=== PATIENT | male | born 1960 | race Caucasian/White ===

== ENCOUNTER 2018-08-10 10:46 | Day surgery (SDC) | payer OTHER, SELFPAY ==
--- NOTE | 2018-08-09 17:36 | HP.PCM_ITS ---
History and Physical Date of Admission: 08/10/18 HISTORY AND PHYSICAL ? Trever Arizmendi 1960 ? REFERRING PHYSICIAN: ??Jero Isaacs MD ? CHIEF COMPLAINT: ??Consult (GI bleed) ? HPI: The patient is a 58 year old male referred for endoscopy. ?I was performing endoscopy and his this past Thursday. ?In discussion with the patient st rictly his 's endoscopy, he noted a significant amount of rectal bleeding in the toilet bowl. ?Over the weekend. ?He was wishing to have a rapid evaluation for endoscopy himself. ? ??Trever notes the following GI complaints: ??Trever denies abdominal pain.. ?Trever denies?diarrhea. ??Trever denies?constipation. ?Trever denies?a change in bowel habits. ?Trever denies?melena. ?Trever notes?bright red blood per rectum. ???Trever suspects?hemorrhoids. ? ? The patient ?notes the following upper complaints: ??Trever denies abdominal pain.. ?Trever notes?heartburn. ??Trever denies?dysphagia. ?Trever denies?a history of ulcers/ peptic ulcer disease. ???He does take a proton pump inhibitor due to significant reflux. ? Trever has not?undergone prior endoscopy. ? ? He also notes an umbilical and inguinal hernia. ?His left hernia is somewhat symptomatic. ?He likely has a smaller right inguinal hernia. ?Additionally, area did wide like to have endoscopy performed in the near future, he is not currently off time or a notification saved up to have his hernias repaired. ?He would plan to do that later in the year or in early 2018 ? PAST MEDICAL HISTORY PAST MEDICAL HISTORY Diagnosis Date ? Arthritis ? ? Heartburn ? ? ? PAST SURGICAL HISTORY PAST SURGICAL HISTORY Procedure Laterality Date ? NONE ? CURRENT MEDICATIONS ? Current Outpatient Prescriptions: multivit-minerals/ferrous fum (MULTI VITAMIN ORAL) Take by mouth once daily. omeprazole (PRILOSEC) 10 mg capsule Take 1 capsule by mouth daily before breakfast. 1/2 hr before meal. Jopx-Yqjg-RFE#5-L-Gydi-Mitul-Bor (OSTEO BI-FLEX) 750-625-30 mg Tab Take ?by mouth. ? No current facility-administered medications for this visit. ? ALLERGIES: Patient has no known allergies. ? PERSONAL HISTORY: SOCIAL HISTORY Social History ??Marital status: ?Spouse name: Gosia. ?Years of education: ?Number of children: ? Social History Main Topics ??Smoking status: Never Smoker ?Smokeless tobacco: Never Used ?Alcohol use: Yes ?Comment: occasionally ??Drug use: No ?Sexual activity: Yes ?Partners with: Female ? Social History Narrative ?? ~2009. ?Remarried. ? FAMILY HISTORY: FAMILY HISTORY FAMILY HISTORY Problem Relation Age of Onset ? Diabetes Mother ? ? Heart Mother ? ? other (lupus) Mother ? ? other (colon polyp) Mother ? ? Heart Father ? ? Heart Brother 53 ?Prior stents but quintuple bypass at age 53. ? REVIEW OF SYMPTOMS: ??The review of systems data was entered by the nurse and reviewed by me ? Nursing Notes: Sindi Olmos LPN ?08/05/2018 ?4:37 PM ?Signed REVIEW OF SYSTEMS: ?General:???The patient denies fatigue, denies weight loss, denies weight gain, denies feeling hot, and denies feelings of cold. ?Eyes: ?The patient denies glaucoma, denies eye injury/surgery, wears glasses or contacts. ?Ear/Nose/Throat: ?The patient denies allergies, denies hayfever, denies ear infections, and denies bloody noses. ?Cardiovascular: ?The patient denies chest pain, denies heart disease, denies high blood pressure,denies cardiac stent, denies prior heart attack, denies irregular heart beat, denies high cholesterol, ?denies poor circulation, denies heart failure, other cardiac issues, denies claudication, denies cold feet, denies peripheral arterial stent. ?Respiratory: ?The patient denies tuberculosis, denies pneumonia, denies frequent cough, denies pulmonary embolism, denies shortness of breath, and denies coughing up blood. ?Gastrointestinal: ?The patient denies difficulty swallowing, NOTES acid reflux, denies ulcers, denies vomiting, denies jaundice/hepatitis, denies gallbladder problems, denies black or tarry stools, denies hemorrhoids, NOTES bleeding from rectum, denies diverticulitis, denies constipation, denies diarrhea, denies loss of stool control, and denies hernias. ?Kidney/Bladder: ?The patient denies kidney stones, denies urine infections, and denies bloody urine. ?Skin: ?The patient denies a history of skin cancer, denies bleeding/changing moles, and denies a history of skin rash. ?Neurologic: ?The patient denies a history of epilepsy/convulsions, denies headaches, denies head/spinal injuries, and denies stroke/TIA. ?Psychiatric: ?The patient denies psychiatric medications, denies depression, and denies voices, denies substance abuse. ?Endocrine: ?The patient denies thyroid disorders, denies diabetes, and denies hormonal problems. ?Hematologic: ?The patient denies a history of bruising, denies bleeding, and denies anemia, denies blood clots. ?Infections: ?The patient denies a history of measles and mumps, denies rheumatic fever, and denies sexually transmitted diseases. ?Musculoskeletal: ?The patient denies back pain/injury, denies back problems, denies sciatica, NOTES knee/foot trouble, denies arthritis, or denies gout. ? ? When was patient's last Mammogram screening? N/A ? ?Last Colonoscopy: ?none ? Sindi Olmos LPN ? PHYSICAL EXAMINATION: ? General: ?The patient is 58 year old male, well nourished, well hydrated in no acute distress. ?The patient is oriented to time, place, and person. ? VITALS: Blood pressure 128/74, pulse 72, weight 121.1 kg (267 lb).?Body mass index is 32.5 kg/m?.? ? HEENT: ?Normal cephalic, ataumatic, pupils are equally round, sclera are anicteric, mucous membranes are moist, oropharynx is clear. ?Neck has no masses, asymmetry or lymphadenopathy. ?Thyroid is unremarkable. ? Respiratory: ?Clear to auscultation and percussion. ?Normal respiratory excursion and pattern. ? Cardiac: ?Examination is regular rate and rhythm. ? Abdominal exam: ?Soft, nontender, ?with no palpable masses. ?No hepatosplenomegaly. ?An umbilical hernia, a larger left inguinal hernia, likely right inguinal hernia ? Rectal exam: exam deferred ? Extremities: ?no clubbing, cyanosis or edema. ?No adenopathy. ? Other: ? LABORATORY VALUES: As Noted ? RADIOLOGIC STUDIES: ?As Noted ? Assessment ? IMPRESSION: Reflux on PPIs, rectal bleeding, likely hemorrhoids, umbilical hernia, left inguinal hernia, likely right inguinal hernia ? PLAN: ?I plan to perform upper and lower?endoscopy - if possible, we will consider hemorrhoidal banding at the same time.. ??We discussed the risks and benefits of the planned endoscopy. ?I have informed the patient that complications can occur including failure to complete the endoscopy and perforation. ?The patient had the opportunity to ask questions concerning the planned endoscopy. ?My staff has also explained the procedure to the patient in understandable terms and has given the patient printed material concerning the procedure. ?The patient freely consents to surgery. ? I plan to use golytely bowel preparation for endoscopy ? I plan for monitored anesthetic care. ? Diagnoses: (K62.5) Rectal bleeding ?(primary encounter diagnosis) (K21.9) Gastroesophageal reflux disease, esophagitis presence not specified (K42.0) Umbilical hernia with obstruction, without gangrene (K40.20) Non-recurrent bilateral inguinal hernia without obstruction or gangrene ? My findings have been communicated to Dr. Lavonne Isaacs MD?via shared medical record. ?This note will be forwarded to Dr. Jero Isaacs MD. ?? Return to Clinic: The patient is instructed to follow-up with me after the testing has been completed. ? Marty Hess MD
--- NOTE | 2018-08-10 | IMM_PTH ---
PATIENT: MAGGIE ALVARADO LOC: EN U#:[id number] AGE/SX: 58/M ROOM: RE08/10/[address]: Dr. Marty Hess MD : 1960 BED: DIS: 08/10/2018 SPEC #: [id number] RECD: 08/12/18 10:20 STATUS: ANTON REQ #: [id number] [place]: 08/10/18 00:[address]: Marty Hess DEPT: IMMUNOHISTOCHEMISTRY RECD BY: Jana uH ENTERED: 08/12/18 10:22 SP TYPE: IMMUNO OTHR DR: Dr. Fuad Isaacs MD Tissues: A - Stomach, NOS C - Rectum, NOS Procedures: H Pylori (initial) MSH2 (add) MLH-1 (add) MSH6 (add) Anti-PMS2 (add) FIGUEROA-2 (add) P53 (add) KI-67 (initial) PHYSICIAN & INSTITUTION [place] [id number] SPECIMEN INFORMATION: Tissue Source: A - Antral biopsy, C - Rectal biopsy Clinical Info: Rectal bleeding, GERD, esophagitis Specimen Number: [id number] A & C CPT code: 78315 x2, 18573 x6 METHODOLOGY: Deparaffinized sections of prefer/formalin-fixed tissue or PAP/DQ stained slides are incubated with monoclonal/polyclonal antibodies/oligonucleotide probes. Localization is made via biotin free immunoperoxidase method. Appropriate controls are performed and reacted as expected. Results on target cell population are indicated in the following table: RESULTS: ANTIBODY / CLONE RESULT Block A H Pylori (polyclonal) negative Block B Ki-67 (30-9) positive, high P53 (DO-7) positive MSH2 (25D12) positive MSH6 (44) positive MLH-1 (M1) positive PMS2 (RTV6281) positive FIGUEROA-2 (SP21) positive These tests were developed and their performance characteristics determined by [facility]. They may not have been cleared or approved by the U.S. Food and Drug Administration. The FDA has determined that such clearance or approval is not necessary. INTERPRETATION: A. Antral biopsy: Negative for Helicobacter pylori organisms. B. Rectal biopsy: Invasive adenocarcinoma. Result of Microsatellite Instability Study: Negative (no loss of mismatch protein; no microsatellite instability detected). SJ:terrence 08/12/18
[2018-08-10 11:15] VITALS: BP 138/85; PULSE 74; RESP 16; TEMP 36.8; O2SAT 100; BMI 30.7
--- NOTE | 2018-08-10 12:00 | EGD_PTH ---
PATIENT: MAGGIE ALVARADO LOC: EN U#:[id number] AGE/SX: 58/M ROOM: RE08/10/[address]: Dr. Marty Hess MD : 1960 BED: DIS: 08/10/2018 SPEC #: [id number] RECD: 08/10/18 15:13 STATUS: ANTON MAGDALENE #: [id number] [place]: 08/10/18 12:[address]: Marty Hess DEPT: SURGICAL PATHOLOGY RECD BY: Luz Batista ENTERED: 08/11/18 10:13 SP TYPE: EGD BIOPSY EDYTA DR: Dr. Fuad Isaacs MD Tissues: A - Gastric mucous membrane B - Gastric mucous membrane C - Rectum, NOS Procedures: Special Stain Group II Surgery Specimen Level IV Alcian Blue/PAS (control) HEADER OPERATION: Colonoscopy, EGD PRE-OP DIAGNOSIS: Rectal bleeding, GI reflux disease, esophagitis TISSUE SUBMITTED: A. Antral biopsy, B. Biopsy GE junction, C. Rectal biopsy MICROSCOPIC DIAGNOSIS A. Antral biopsy: Mild gastritis. See microscopic description and comment. B. GE junction, biopsy: Fragment of gastroesophageal mucosa with chronic inflammation. Intestinal metaplasia (goblet cell metaplasia) is not identified. See comment. C. Rectal biopsy: Invasive well differentiated adenocarcinoma. See comment. SJ:rg 08/12/18 COMMENT A. The results of immunohistochemistry for Helicobacter pylori will be reported separately ([id number]). B. Alcian blue/PAS stain with matched control is used in the evaluation of the specimen. C. Immunohistochemistry study ([id number]) for mismatch of protein will be performed and the results will be reported separately. MICROSCOPIC DESCRIPTION Slides are reviewed. A. The specimen shows fragments of gastric mucosa with chronic inflammatory cell infiltrates in the lamina propria consisting of lymphocytes and plasma cells, consistent with mild chronic gastritis. GROSS DESCRIPTION A - Received in fixative is one container labeled with the patient's name and designated antral biopsy. The specimen consists of one irregular fragment of light hutchinson soft tissue that measures 0.3 x 0.3 x 0.1 cm. The specimen is totally submitted in one cassette. B - Received in fixative is one container labeled with the patient's name and designated biopsy GE junction. The specimen consists of one irregular fragment of light hutchinson soft tissue that measures 0.3 x 0.3 x 0.1 cm. The specimen is totally submitted in one cassette. C - Received in fixative is one container labeled with the patient's name and designated rectal biopsy. The specimen consists of multiple irregular fragments of light hutchinson soft tissue that in aggregate measure 1 x 0.3 x 0.1 cm. The specimen is totally submitted in one cassette. / SJ:rg 08/11/18 TC:0 [facility]: [id number] x3, [id number] ADDENDUM ADDENDUM ADDENDUM ADDENDUM ADDENDUM ADDENDUM ADDENDUM ADDENDUM ADDENDUM ADDENDUM ADDENDUM ADDENDUM ADDENDUM ADDENDUM ADDENDUM ADDENDUM 10/04/2018 10:33 ADDENDUM 10/04/2018 10:33 ADDENDUM 10/04/2018 10:33 ADDENDUM 10/04/2018 10:33 ADDENDUM 10/04/2018 10:33 This addendum is added to incorporate an outside pathology consultation report. The case was examined at [facility] (#[id number]) and the following diagnosis was rendered. A. Antral biopsy: Antral-type mucosa with no significant histopathologic findings. Negative for Helicobacter pylori on H & E. B. GE junction, biopsy: Cardiac mucosa with chronic inflammation, negative for intestinal metaplasia. Squamous mucosa with no significant histopathologic findings. C. Rectal biopsy: Fragments of infiltrating moderating differentiated adenocarcinoma. Please see complete above mentioned consultation report in EMR
[2018-08-10 14:25] VITALS: BP 138/85; BP 97/53; PULSE 75; RESP 16; TEMP 36.2; O2SAT 97
--- NOTE | 2018-08-10 14:28 | OP.ENDO_ITS ---
Patient Name: Trever Arizmendi Procedure Date: 08/10/2018 2:06 PM Date of : 1960 Age: 58 Procedure: Upper GI endoscopy Indications: Hematochezia Providers: Marty Hess MD Medicines: Monitored Anesthesia Care Patient Profile: This is a 58 year old male. Refer to note in patient chart for documentation of history and physical. Patient has symptoms. Complications: No immediate complications. Procedure: Pre-Anesthesia Assessment: - Prior to the procedure, a History and Physical was performed, and patient medications and allergies were reviewed. The patient is competent. The risks and benefits of the procedure and the sedation options and risks were discussed with the patient. All questions were answered and informed consent was obtained. Patient identification and proposed procedure were verified by the physician, the nurse and the overhead line worker in the procedure room. Mental Status Examination: alert and oriented. Airway Examination: normal oropharyngeal airway and neck mobility. Respiratory Examination: clear to auscultation. CV Examination: normal. Prophylactic Antibiotics: The patient does not require prophylactic antibiotics. Prior Anticoagulants: The patient has taken no previous anticoagulant or antiplatelet agents. ASA Grade Assessment: II - A patient with mild systemic disease. After reviewing the risks and benefits, the patient was deemed in satisfactory condition to undergo the procedure. The anesthesia plan was to use moderate sedation / analgesia (conscious sedation). Immediately prior to administration of medications, the patient was re-assessed for adequacy to receive sedatives. The heart rate, respiratory rate, oxygen saturations, blood pressure, adequacy of pulmonary ventilation, and response to care were monitored throughout the procedure. The physical status of the patient was re-assessed after the procedure. After obtaining informed consent, the endoscope was passed under direct vision. Throughout the procedure, the patient's blood pressure, pulse, and oxygen saturations were monitored continuously. The gastroscope was introduced through the mouth, and advanced to the jejunum. The upper GI endoscopy was accomplished without difficulty. The patient tolerated the procedure well. Scope In: 2:08:33 PM Scope Out: 2:11:42 PM Total Procedure Duration Time 0 hours 3 minutes 9 seconds Findings: The examined jejunum was normal. Mildly erythematous mucosa without active bleeding and with no stigmata of bleeding was found in the duodenal bulb. Scattered mild inflammation characterized by erosions, erythema and friability was found in the gastric antrum. Biopsies were taken with a cold forceps for histology. Non-severe esophagitis with no bleeding was found. Biopsies were taken with a cold forceps for histology. Impression: - Normal examined jejunum. - Erythematous duodenopathy. - Gastritis. Biopsied. - Non-severe reflux esophagitis. Biopsied. Recommendation: - Return to physician optometrist assistant in 1 week. - Continue present medications. Procedure Code(s): --- Professional --- 66122, Esophagogastroduodenoscopy, flexible, transoral; with biopsy, single or multiple CPT copyright 2017 [employer]. All rights reserved. The codes documented in this report are preliminary and upon inclusion specialist review may be revised to meet current compliance requirements. Marty Hess MD 08/10/2018 2:27:37 PM This report has been signed electronically. Number of Addenda: 0 Note Initiated On: 08/10/2018 2:06 PM
[2018-08-10 14:30] VITALS: BP 138/85; BP 89/46; PULSE 68; RESP 16; O2SAT 98
--- NOTE | 2018-08-10 14:32 | OP.ENDO_ITS ---
Patient Name: Trever Arizmendi Procedure Date: 08/10/2018 2:05 PM Date of : 1960 Age: 58 Procedure: Colonoscopy Indications: Rectal bleeding Providers: Marty Hess MD Medicines: Monitored Anesthesia Care Patient Profile: This is a 58 year old male. Refer to note in patient chart for documentation of history and physical. Last Colonoscopy: Complications: No immediate complications. Procedure: Pre-Anesthesia Assessment: - Prior to the procedure, a History and Physical was performed, and patient medications and allergies were reviewed. The patient is competent. The risks and benefits of the procedure and the sedation options and risks were discussed with the patient. All questions were answered and informed consent was obtained. Patient identification and proposed procedure were verified by the physician, the nurse and the garment sewing machine operator in the procedure room. Mental Status Examination: alert and oriented. Airway Examination: normal oropharyngeal airway and neck mobility. Respiratory Examination: clear to auscultation. CV Examination: normal. Prophylactic Antibiotics: The patient does not require prophylactic antibiotics. Prior Anticoagulants: The patient has taken no previous anticoagulant or antiplatelet agents. ASA Grade Assessment: II - A patient with mild systemic disease. After reviewing the risks and benefits, the patient was deemed in satisfactory condition to undergo the procedure. The anesthesia plan was to use moderate sedation / analgesia (conscious sedation). Immediately prior to administration of medications, the patient was re-assessed for adequacy to receive sedatives. The heart rate, respiratory rate, oxygen saturations, blood pressure, adequacy of pulmonary ventilation, and response to care were monitored throughout the procedure. The physical status of the patient was re-assessed after the procedure. After I obtained informed consent, the scope was passed under direct vision. Throughout the procedure, the patient's blood pressure, pulse, and oxygen saturations were monitored continuously. The pediatric colonoscope was introduced through the anus and advanced to the cecum, identified by the appendiceal orifice, IC valve and transillumination. The colonoscopy was performed without difficulty. The patient tolerated the procedure well. The quality of the bowel preparation was good. Scope In: 2:13:29 PM Scope Withdrawal Time 0 hours 6 minutes 38 seconds Scope Out: 2:22:23 PM Total Procedure Duration Time 0 hours 8 minutes 54 seconds Findings: The digital rectal exam revealed a 4 cm (diameter) hard rectal mass palpated 5 to 9 cm from the anal verge. The mass was non-circumferential and located predominantly at the right bowel wall. A fungating non-obstructing medium-sized mass was found in the rectum. The mass was non-circumferential. The mass measured four cm in length. Oozing was present. Biopsies were taken with a cold forceps for histology. The exam was otherwise without abnormality. Impression: - Rectal mass 5 to 9 cm from the anal verge. - Malignant tumor in the rectum. Biopsied. - The examination was otherwise normal. Recommendation: - Discharge patient to home. - Resume previous diet. - Continue present medications. - Repeat colonoscopy for surveillance based on pathology results. - Perform magnetic resonance imaging (MRI) with gadolinium at appointment to be scheduled. - Check CEA today. - Check hemogram with white blood cell count and platelets today. - Check electrolyte panel today. Procedure Code(s): --- Professional --- 66966, Colonoscopy, flexible; with biopsy, single or multiple CPT copyright 2017 [employer]. All rights reserved. The codes documented in this report are preliminary and upon beverage manager review may be revised to meet current compliance requirements. Marty Hess MD 08/10/2018 2:31:29 PM This report has been signed electronically. Number of Addenda: 0 Note Initiated On: 08/10/2018 2:05 PM
[2018-08-10 14:35] VITALS: BP 107/47; BP 138/85; PULSE 69; RESP 16; O2SAT 99
[2018-08-10 14:40] VITALS: BP 110/62; BP 138/85; PULSE 61; RESP 16; TEMP 36.3; O2SAT 99
[2018-08-10 15:01] LABS: Absolute Lymphocyte Count 1.41 X10^3/ul (0.83-4.51); Absolute Neutrophil Count 3.4 X10^3/uL (2.0-7.7); Basophil# 0.02 X10^3/uL; Basophil% 0.4 % (0-1); Eosinophil# 0.08 X10^3/uL; Eosinophils% 1.5 % (0-5); Hemoglobin 10.1 g/dl (13.0-16.5); Lymphocyte # 1.41 X10^3/ul (4.0); Lymphocyte % 26.3 % (19-41); Mean Corp Hgb Conc 32.6 g/gl (32-36); Mean Corpuscular Hgb 30.3 pg (27.0-32.0); Mean Corpuscular Volume 93.1 fL (80-94); Mean Platelet Vol. 9.3 fl (6.2-12.0); Monocyte# 0.42 X10^3/uL; Monocyte% 7.8 % (0-10); Neutrophil # 3.43 X10^3/uL (2.7-7.7); Neutrophil % 63.8 % (47-70); Platelet Count 239 K/mm3 (150-450); RBC Distribution Width SD 47.1 fl (35.1-43.9); Red Blood Count 3.33 M/mm3 (4.6-6.2); White Blood Count 5.4 K/mm3 (4.4-11.0)
[2018-08-10 15:02] LABS: POSITIVE COUNT NO; POSITIVE DIFFERENTIAL NO; POSITIVE MORPHOLOGY NO
[2018-08-10 15:17] VITALS: BP 138/85
[2018-08-10 15:33] LABS: ALB/GLOB Ratio 1.1 RATIO (0.9-2.4); AST(SGOT) 23 U/L (15-37); Alanine Aminotransfer ALT/SGPT 26 U/L (16-61); Albumin, Serum 3.4 g/dL (3.2-5.0); Alkaline Phosphatase 86 U/L (45-117); Anion Gap 6 (5-15); BUN 11 mg/dL (7-18); BUN/Creat Ratio 13.5 RATIO (10-20); Calcium,Total 8.4 mg/dL (8.5-10.1); Chloride 105 mmol/L (98-107); Creatinine, Serum 0.81 mg/dL (0.70-1.30); EST Glomerular Filtration Rate 104 mL/min (>60); Est Glom Filt Rate - Afr Amer 126 mL/min (>60); Estimated Creatinine Clearance 126.81 ml/min; Globulin 3.1 g/dL (2.2-4.2); Glucose 83 mg/dL (74-106); Potassium 3.8 mmol/L (3.5-5.1); Protein, Total 6.5 g/dL (6.4-8.2); Sodium Level 139 mmol/L (136-145)
[2018-08-12 13:08] LABS: Carcinoembryonic Antigen 0.9 ng/mL (0.0-4.7)
== END 2018-08-10 15:19 | disposition home or self-care (01) ==
LOC: EN 10:47 → AC 10:51
PROVIDERS: Family Provider Family Medicine; PCP Family Medicine; Referring Provider Surgery; Visit Provider Surgery
PROC: 0DJD8ZZ Inspection of Lower Intestinal Tract, Via Natural or Artificial Opening Endoscopic (ICD-10-PCS; CPT 45378; principal; 2018-08-10 11:55)
DX: C20 Malignant neoplasm of rectum (principal); K62.5 Hemorrhage of anus and rectum; K21.9 Gastro-esophageal reflux disease without esophagitis; K29.70 Gastritis, unspecified, without bleeding; M19.90 Unspecified osteoarthritis, unspecified site; Z79.899 Other long term (current) drug therapy
CPT/HCPCS: 43239; 45380; 80053; 82378; 85025; 88305; 88313; 88341; 88342; J7120

== ENCOUNTER → 2018-08-18 06:26 | Outpatient (CLI) | payer OTHER, SELFPAY ==
--- NOTE | 2018-08-18 06:38 | MRI_ITS ---
STUDY: MR PELVIS WITH T WITHOUT CONTRAST REASON FOR EXAM: Male, 58 years old. Staging of rectal cancer. TECHNIQUE: Standardized fat and water weighted pulse sequences were obtained in all 3 orthogonal planes, pre-and post contrast administration. 10 ml of Gadavist contrast material was administered intravenously for the contrast portion of the examination. Several images are limited by patient motion. COMPARISON: Prior comparison studies are not available for review at this time. FINDINGS: Normal urinary bladder. There is no evidence for dilated bowel. There is a rectal mass measuring approximately 3.2 x 1.1 x 2.2 cm in size. This appears to rise from the right-sided wall of rectum. This does not appear to extend beyond the serosa. Normal visualized prostate gland. There is no pelvic fluid. There is no pelvic mass lesion or lymphadenopathy. Normal visualized pelvic arteries. There is degenerative disc disease at L5-S1. The patient appears to have a left-sided inguinal hernia containing fat. MRI/Pelvis W/WO Contrast IMPRESSION: Right-sided rectal mass without evidence for extension beyond the rectum or pelvic lymphadenopathy. Electronically Signed: Susanne Lopez MD at 5:13 EDT , Service support ,
== END ==
PROVIDERS: Family Provider Family Medicine; PCP Family Medicine; Referring Provider Surgery; Visit Provider Surgery
DX: C20 Malignant neoplasm of rectum (principal)
CPT/HCPCS: 72197; A9585

== ENCOUNTER → 2018-08-19 07:36 | Outpatient (CLI) | payer OTHER, SELFPAY ==
--- NOTE | 2018-08-19 07:41 | CT_ITS ---
STUDY: CT ABDOMEN AND PELVIS WITH CONTRAST REASON FOR EXAM: Male, 58 years old. Diagnosis rectal cancer. RADIATION DOSAGE (If Supplied By Facility): CTDIvol = ( 22.72 ) mGy, DLP = ( 1456.77 ) mGycm TECHNIQUE: Transaxial images were obtained from the dome of the diaphragm to the symphysis pubis without oral contrast. 100 ml of Isovue 300 contrast was administered. Sagittal and coronal images were reconstructed. Individualized dose optimization techniques were used for this CT. COMPARISON: None. FINDINGS: The visualized lung bases are unremarkable. The visualized portions of the heart are within normal limits. Normal liver. Normal gallbladder and extrahepatic biliary system. Normal spleen. Normal pancreas. Normal bilateral adrenal glands. Normal right kidney. Normal left kidney. Normal visualized stomach. Normal small intestine. There is a mural thickening of the rectum seen best on sequence #2, image 112 which is consistent with the provided clinical history. There is no pathologic-appearing pelvic sidewall adenopathy or mass. There is non-visualization of the appendix. There is no free fluid. There is no free air. Mild multifocal calcified plaque is seen throughout the aortoiliac system without evident aneurysm. Normal inferior vena cava. Normal retroperitoneum. There is [id number] diffuse thickening of urinary bladder wall. This finding may simply represent artifact of noncomplete distention. However, differential considerations include chronic cystitis versus chronic bladder outlet obstruction. There are left more prominent than right fatty inguinal hernias. There is no evident acute osseous abnormality. There is no suspicious lytic or blastic osseous finding. There are diffuse spinal degenerative changes. CT/Abdomen/Pelvis WITH Contrast IMPRESSION: Mural thickening of the rectum consistent with provided clinical history of rectal carcinoma. No pathologic-appearing pelvic sidewall adenopathy or mass. Atherosclerotic peripheral vascular disease. Mild diffuse thickening of urinary bladder wall. Please see above. No evidence of intra-abdominal/intrapelvic metastases. No suspicious lytic or blastic osseous finding. Electronically Signed: Luis Rushing MD at 12:37 EDT , Service support ,
== END ==
LOC: MRI 07:36 → CT 07:41
PROVIDERS: Family Provider Family Medicine; PCP Family Medicine; Referring Provider Surgery; Visit Provider Surgery
DX: C20 Malignant neoplasm of rectum (principal)
CPT/HCPCS: 74177; Q9967

== ENCOUNTER → 2018-08-30 06:40 | Outpatient (CLI) | payer OTHER, SELFPAY ==
[2018-08-26 10:55] VITALS: BMI 32.5
--- NOTE | 2018-08-30 06:44 | CT_ITS ---
STUDY: CT CHEST WITH CONTRAST REASON FOR EXAM: Male, 58 years old. Rectal CA. RADIATION DOSAGE (If Supplied By Facility): CTDIvol = ( 14.23 ) mGy, DLP = ( 670.55 ) mGycm TECHNIQUE: Transaxial imaging was performed following intravenous administration of 100cc ml of Isovue 300 contrast material. Individualized dose optimization techniques were used for this CT. COMPARISON: August 19, 2018. FINDINGS: The lungs are normal. There is no demonstrated pleural abnormality. Normal heart and pericardium. Normal mediastinum. Normal hilar regions. Normal enhanced pulmonary arteries. Normal aorta arch and descending thoracic aorta. Deformity compatible with an old fracture midshaft of the right clavicle. Multilevel degenerative changes of the thoracic spine. Mild loss vertebral body height at multiple levels in the lower thoracic spine probably old. No acute fracture line is identified. There is no demonstrated abnormality of the visualized upper abdomen. CT/Chest WITH Contrast IMPRESSION: No acute findings in the chest. No evidence of metastatic disease. Old fracture midshaft right clavicle. Degenerative changes of the thoracic spine. Mild compression fractures in the lower thoracic spine which are likely old. Electronically Signed: Dick Torres MD at 7:28 EDT , Service support ,
[2018-08-30 15:09] LABS: Xtra Tube EP Lab EXTRA TUBE
[2018-08-31 14:49] LABS: Carcinoembryonic Antigen 1.1 ng/mL (0.0-4.7)
== END ==
PROVIDERS: Family Provider Family Medicine; PCP Family Medicine; Referring Provider Internal Medicine Medical Oncology; Visit Provider Internal Medicine Medical Oncology
DX: C20 Malignant neoplasm of rectum (principal)
CPT/HCPCS: 36415; 71260; 82378; Q9967

== ENCOUNTER 2019-01-28 05:51 | Day surgery (SDC) | payer OTHER, SELFPAY ==
[2018-08-26 10:55] VITALS: BMI 32.5
[2019-01-19 09:44] VITALS: BMI 31.4
[2019-01-19 10:38] VITALS: BMI 30.9
[2019-01-28] VITALS (8 sets, daily range): BP systolic 112–141; BP diastolic 73–82; PULSE 75–88; RESP 16–18; TEMP 36.5–36.6; O2SAT 96–99; BMI 31.4
[2019-01-28] MEDS: Cefazolin 2 GM in 0.9% Normal Saline 100 ML IV (07:25)
[2019-01-28] MEDS: Bupiv/Epi 0.5% Mpf 30 ML Vial (07:50)
--- NOTE | 2019-01-28 08:12 | DCINST_ITS ---
Discharge Diet: No Restrictions - Pain medication may cause nausea. You should typically eat light foods as you take your pain medication. Discharge Activity: Return to Normal Activity, May Shower - with your bandage in place in 1-2 days after surgery. DO NOT SHOWER WHEN YOUR PORT IS ACCESSED. Call your doctor if your incision/area has: Continuous Slow Oozing, Sudden Increased Bleeding, Increased Pain/ Swelling, Increased Redness Call your doctor if you observe: Fever of 101 or Higher Remove Dressing in (days):: 2 - When you remove the bandage, leave the steri- strips intact until they fall off. Allergies/Adverse Reactions: Allergies No Known Allergies Allergy (Verified 01/28/19 06:15) Medications to take at Discharge Multivitamin [Multiple Vitamins] 1 ea PO DAILY 08/09/18 Omeprazole Magnesium [Prilosec Otc] 20 mg PO QODAY 08/09/18 Enoxaparin Sodium [Lovenox] 40 mg SQ DAILY 01/17/19 acetaminophen 325 mg capsule 325 mg PO Q4H PRN 01/19/19 ferrous sulfate 325 mg (65 mg iron) tablet 325 mg PO DAILY tab 01/19/19 food supplement, lactose-reduced oral liquid 2 ea PO DAILY ml 01/19/19 Primary Care Physician: Fuad Isaacs MD [Primary Care Provider] - Test Results: Test results from this visit will be discussed in further detail at your follow- up appointment, if applicable. Please Follow Up With: Reinier Ledbetter MD When: Please call to schedule 1 week follow up appointment. [phone]
--- NOTE | 2019-01-28 08:12 | OP.PCM_ITS ---
Problem List (1) Encounter for adjustment or management of vascular access device Status: Acute (2) Rectal cancer Status: Chronic Report of Operation Date of Procedure: 01/28/19 Pre-Operative Diagnosis: Rectal cancer with need for chemotherapy and access Post-Operative Diagnosis: Same Surgery/Procedure Performed:: Ultrasound and fluoroscopy-guided right chest port placement utilizing right IJ Description of Procedure: After obtaining informed consent patient was brought back to the operating room MAC anesthesia was induced and the right chest and neck were prepped in normal sterile fashion. Ultrasound was used to evaluate both IJs and the right IJ was selected. Next, using a needle, the right IJ was accessed and a guidewire was passed on into the superior vena cava under fluoroscopy guidance. A small incision was made over the puncture site and the dilator introducer was placed over the guidewire. Next this was capped and the pocket was made for the port. 1% lidocaine with epinephrine was injected in the proposed port site. An incision was made with scalpel. Electrocautery was used to make a pocket under the skin and subcutaneous tissue. Hemostasis was obtained. Next, the catheter was tunneled up to the neck incision site and placed through the introducer. The peel-away introducer was removed and the position of the catheter was confirmed on fluoroscopy. Next, the catheter was trimmed and attached to the port with the locking device. Interrupted 2-0 Vicryl sutures were used to anchor the port to the chest wall and then the port was placed inside the pocket. The pocket was then flushed with saline and the port irrigated with saline. There was good blood return and the port flushed easily. Next, heparin was injected into the port. The skin was closed with subcutaneous interrupted 3-0 Vicryl sutures and interrupted skin 3-0 nylon sutures. A single 3-0 Vicryl sutures placed under the skin at the neck incision site. Steri-Strips were placed as well as op sites. Patient tolerated procedure well, was taken to PACU in stable condition. Chest x-ray will be obtained. Grafts/Implants Used: 8 [employer] PowerPort
--- NOTE | 2019-01-28 08:20 | RAD_ITS ---
STUDY: X-RAY CHEST REASON FOR EXAM: Male, 58 years old. Port placement TECHNIQUE: Single AP portable view of the chest. COMPARISON: None. FINDINGS: Mediport is seen on the right side is in good position the tip is in the lower part of the superior vena cava. The lungs are clear and expanded. There is no demonstrated pleural abnormality. Normal size heart. Normal mediastinum and sandy. Normal visualized pulmonary arteries. Normal visualized aortic arch and descending thoracic aorta. There are diffuse degenerative changes of the visualized thoracic spine. There is degenerative osteoarthritis of the bilateral shoulders. There is a healed right clavicle fracture. There is no demonstrated abnormality of the visualized soft tissue structures of the upper abdomen. RAD/CXR for Line Placement IMPRESSION: Degenerative changes, as described above. No demonstrated acute cardiopulmonary process. Electronically Signed: Livia Lang, at 9:03 EDT Tel , Service support ,
== END 2019-01-28 09:14 | disposition home or self-care (01) ==
LOC: SDC 05:52 → AC 05:52
PROVIDERS: Family Provider Family Medicine; PCP Family Medicine; Referring Provider Surgery
PROC: (CPT 36571; principal; 2019-01-28 07:15)
DX: C19 Malignant neoplasm of rectosigmoid junction (principal); Z45.2 Encounter for adjustment and management of vascular access device; K21.9 Gastro-esophageal reflux disease without esophagitis; Z79.02 Long term (current) use of antithrombotics/antiplatelets; Z79.899 Other long term (current) drug therapy
CPT/HCPCS: 36571; 71045; 77001; J7120; C1788

== ENCOUNTER → 2019-05-30 | Outpatient (CLI) | payer OTHER, SELFPAY ==
[2018-08-26 10:55] VITALS: BMI 32.5
[2019-04-19 10:53] VITALS: BMI 32.2
--- NOTE | 2019-05-30 08:19 | CT_ITS ---
ACR Level 3 findings have been noted. An addendum which confirms receipt of the report will follow. STUDY: CT ABDOMEN AND PELVIS WITH CONTRAST REASON FOR EXAM: Male, 59 years old. Rectal cancer with prior chemotherapy, radiation, colostomy RADIATION DOSAGE (If Supplied By Facility): CTDIvol = ( 21.40 ) mGy, DLP = ( 2284.68 ) mGycm TECHNIQUE: Transaxial images were obtained from the dome of the diaphragm to the symphysis pubis with oral contrast. 100mL IV/Oral Isovue 300 was administered. Sagittal and coronal images were reconstructed. Individualized dose optimization techniques were used for this CT. COMPARISON: 08/19/2018 FINDINGS: The visualized lung bases are unremarkable. The visualized portions of the heart are within normal limits. Normal liver. Normal gallbladder and extrahepatic biliary system. Normal spleen. Normal pancreas. Normal bilateral adrenal glands. Normal right kidney. 1 cm left renal cyst. Normal visualized stomach. Normal small intestine. Distal colon resection. Left lower quadrant colostomy. The appendix is visualized and appears normal. Normal abdominal aorta. Normal inferior vena cava. Normal retroperitoneum. Normal urinary bladder. A presacral fluid collection is present measuring 5.3 x 3.2 x 2.0 cm. This is most likely a postoperative seroma, although abscess cannot be excluded. Normal abdominal wall. There are diffuse degenerative changes of the visualized lumbar spine. CT/Abdomen/Pelvis WITH Contrast IMPRESSION: No CT evidence of metastatic disease. A presacral fluid collection is present measuring 5.3 x 3.2 x 2.0 cm. This is most likely a postoperative seroma, although abscess cannot be excluded. Electronically Signed: Owen Calle MD at 17:45 EDT Tel , Service support ,
--- NOTE | 2019-05-30 08:19 | CT_ITS ---
STUDY: CT CHEST WITH CONTRAST REASON FOR EXAM: Male, 59 years old. Rectal cancer RADIATION DOSAGE (If Supplied By Facility): CTDIvol = ( 21.40 ) mGy, DLP = ( 2284.68 ) mGycm TECHNIQUE: Transaxial imaging was performed following intravenous administration of 100mL IV Isovue 300. Individualized dose optimization techniques were used for this CT. COMPARISON: 08/30/2018 FINDINGS: Right chest wall port. The lungs are normal. There is no demonstrated pleural abnormality. Normal heart and pericardium. Normal mediastinum. Normal hilar regions. Normal enhanced pulmonary arteries. Normal aorta arch and descending thoracic aorta. There are multi-level degenerative changes of the thoracic spine. 4.3 x 2.0 cm lipoma in the left lateral chest wall musculature. Remote deformity of the right clavicle. There is no demonstrated abnormality of the visualized upper abdomen. CT/Chest WITH Contrast IMPRESSION: No CT evidence of metastatic disease involving the chest. No acute pulmonary findings. Electronically Signed: Owen Calle MD at 14:37 EDT Tel , Service support ,
[2019-05-30 08:51] LABS: CREATININE FINGERSTICK 0.9 mg/dL (0.70-1.30); EGFR FINGERSTICK > 60.0000 mL/min (>60)
[2019-05-30] MEDS: 0.9% Saline Lock 10 ML Syringe IV (08:57)
== END | disposition home or self-care (01) ==
LOC: CT 08:17
PROVIDERS: Family Provider Family Medicine; PCP Family Medicine; Referring Provider Internal Medicine Medical Oncology; Visit Provider Internal Medicine Medical Oncology
DX: C20 Malignant neoplasm of rectum (principal)
CPT/HCPCS: 71260; 74177; Q9967; A4216

== ENCOUNTER → 2019-08-22 | Outpatient (CLI) | payer OTHER, SELFPAY ==
[2018-08-26 10:55] VITALS: BMI 32.5
[2019-05-30 09:28] VITALS: BMI 32.5
[2019-08-22 07:43] LABS: Absolute Lymphocyte Count 0.64 X10^3/uL (0.83-4.51); Absolute Neutrophil Count 3.9 X10^3/uL (2.0-7.7); Basophil# 0.03 X10^3/uL; Basophil% 0.6 % (0-1); Eosinophil# 0.13 X10^3/uL; Eosinophils% 2.4 % (0-5); Hematocrit 39.5 % (40-54); Hemoglobin 12.6 g/dL (13.0-16.5); Lymphocyte # 0.64 X10^3/ul (4.0); Lymphocyte % 11.9 % (19-41); Mean Corp Hgb Conc 31.9 g/dL (32-36); Mean Corpuscular Hgb 29.2 pg (27.0-32.0); Mean Corpuscular Volume 91.6 fL (80-94); Mean Platelet Vol. 9.2 fl (6.2-12.0); Monocyte# 0.69 X10^3/uL; Monocyte% 12.8 % (0-10); NRBC Flagged by Analyzer 0 % (0-5); Neutrophil # 3.86 X10^3/uL (2.7-7.7); Neutrophil % 71.9 % (47-70); Platelet Count 199 K/mm3 (150-450); RBC Distribution Width CV 14.2 % (11.6-14.6); RBC Distribution Width SD 48.2 fl (35.1-43.9); Red Blood Count 4.31 M/mm3 (4.6-6.2); White Blood Count 5.4 K/mm3 (4.4-11.0)
--- NOTE | 2019-08-22 07:48 | CT_ITS ---
STUDY: CT ABDOMEN AND PELVIS WITH CONTRAST REASON FOR EXAM: Male, 59 years old. Rectal cancer. History of resection and colostomy RADIATION DOSAGE (If Supplied By Facility): CTDIvol = ( 16.85 ) mGy, DLP = ( 1300.47 ) mGycm TECHNIQUE: Transaxial images were obtained from the dome of the diaphragm to the symphysis pubis with oral contrast. IV/Oral Isovue 300 100 was administered. Sagittal and coronal images were reconstructed. Individualized dose optimization techniques were used for this CT. COMPARISON: May 30, 2019 and August 19, 2018 FINDINGS: The visualized lung bases are unremarkable. The visualized portions of the heart are within normal limits. There is hepatomegaly with diffuse hepatic enlargement. Normal gallbladder and extrahepatic biliary system. Normal spleen. Normal pancreas. Normal bilateral adrenal glands. Normal right kidney. Normal left kidney. Normal visualized stomach. Normal small intestine. There is resection of the distal colon with left lower quadrant colostomy. The appendix is visualized and appears normal. There is stable presacral ill-defined density with improvement of 2.5 cm low-density central component. There is atherosclerotic calcification of the abdominal aorta, without a demonstrated aneurysm. Normal inferior vena cava. Normal retroperitoneum. Wall thickening of the urinary bladder. There is no free fluid in the abdomen or pelvis There is a small umbilical hernia containing fat. There is a left-sided inguinal hernia containing adipose tissue. There are diffuse degenerative changes of the visualized lumbar spine. CT/Abdomen/Pelvis WITH Contrast IMPRESSION: Postoperative change with left-sided colostomy. No obstruction. Stable presacral soft tissue swelling with improvement of fluid collection suggesting postoperative and posttreatment changes. Electronically Signed: Vladimir Guillen MD at 17:19 EDT , Service support ,
[2019-08-22 08:07] LABS: ALB/GLOB Ratio 1.1 RATIO (0.9-2.4); AST(SGOT) 25 U/L (15-37); Alanine Aminotransfer ALT/SGPT 28 U/L (16-61); Albumin, Serum 3.8 g/dL (3.2-5.0); Alkaline Phosphatase 81 U/L (45-117); Anion Gap 5 (5-15); BUN 22 mg/dL (7-18); BUN/Creat Ratio 24.6 RATIO (10-20); Calcium,Total 8.8 mg/dL (8.5-10.1); Chloride 109 mmol/L (98-107); Creatinine, Serum 0.89 mg/dL (0.70-1.30); EST Glomerular Filtration Rate 93 mL/min (>60); Est Glom Filt Rate - Afr Amer 112 mL/min (>60); Globulin 3.5 g/dL (2.2-4.2); Glucose 116 mg/dL (74-106); LDH 189 U/L (87-241); Potassium 4.3 mmol/L (3.5-5.1); Protein, Total 7.3 g/dL (6.4-8.2); Sodium Level 141 mmol/L (136-145)
[2019-08-23 09:59] LABS: Carcinoembryonic Antigen 0.8 ng/mL (0.0-4.7)
== END | disposition home or self-care (01) ==
LOC: CT 07:20
PROVIDERS: Family Provider Family Medicine; PCP Family Medicine; Referring Provider Internal Medicine Medical Oncology; Visit Provider Internal Medicine Medical Oncology
DX: D50.9 Iron deficiency anemia, unspecified (principal); Z85.048 Personal history of other malignant neoplasm of rectum, rectosigmoid junction, and anus
CPT/HCPCS: 36415; 74177; 80053; 82378; 83615; 85025; Q9967; A4216

== ENCOUNTER → 2020-02-21 07:30 | Outpatient (CLI) | payer OTHER, SELFPAY ==
[2018-08-26 10:55] VITALS: BMI 32.5
[2019-08-25 10:58] VITALS: BMI 33.3
--- NOTE | 2020-02-21 07:32 | CT_ITS ---
STUDY: CT ABDOMEN AND PELVIS WITH CONTRAST REASON FOR EXAM: Male, 59 years old. RECTAL CANCER SURVEIL ANCE RADIATION DOSAGE (If Supplied By Facility): CTDIvol = ( 18.26 ) mGy, DLP = ( 1266.14 ) mGycm TECHNIQUE: Transaxial images were obtained from the dome of the diaphragm to the symphysis pubis with oral contrast. Oral and amp;amp; IV Readi-CAT and amp;amp; 100mL Isovue-300 was administered. Sagittal and coronal images were reconstructed. Individualized dose optimization techniques were used for this CT. COMPARISON: Comparison is made with prior study dated August 22, 2019. FINDINGS: The visualized lung bases are unremarkable. The visualized portions of the heart are within normal limits. There is decreased attenuation of the liver consistent with steatosis. Normal gallbladder and extrahepatic biliary system. Normal spleen. Normal pancreas. Normal bilateral adrenal glands. Normal right kidney. Normal left kidney. Normal visualized stomach. Normal small intestine. Status post resection of the distal colon and rectum. A colostomy is seen in the anterior wall in the left lower quadrant. The appendix is visualized and appears normal. There is scattered atherosclerotic calcification of the abdominal aorta, without a demonstrated aneurysm. Normal inferior vena cava. Normal retroperitoneum. Normal urinary bladder. Stable presacral soft tissue swelling secondary to prior rectal resection and postoperative changes. There is a small umbilical hernia containing fat. Moderate sized left Continued fat. There are degenerative changes of the visualized lumbar spine. CT/Abdomen/Pelvis WITH Contrast IMPRESSION: Stable examination. Electronically Signed: Hugo Gan, at 9:11 EDT , Service support ,
[2020-02-21 07:57] LABS: Absolute Lymphocyte Count 0.67 X10^3/uL (0.83-4.51); Absolute Neutrophil Count 4.2 X10^3/uL (2.0-7.7); Basophil# 0.02 X10^3/uL; Basophil% 0.4 % (0-1); Eosinophils% 1.8 % (0-5); Hemoglobin 13.6 g/dL (13.0-16.5); Lymphocyte # 0.67 X10^3/ul (4.0); Lymphocyte % 11.9 % (19-41); Mean Corp Hgb Conc 32.4 g/dL (32-36); Mean Corpuscular Hgb 29.9 pg (27.0-32.0); Mean Corpuscular Volume 92.3 fL (80-94); Mean Platelet Vol. 9.3 fl (6.2-12.0); Monocyte# 0.64 X10^3/uL; Monocyte% 11.4 % (0-10); NRBC Flagged by Analyzer 0 % (0-5); Neutrophil # 4.15 X10^3/uL (2.7-7.7); Platelet Count 235 K/mm3 (150-450); RBC Distribution Width CV 13.9 % (11.6-14.6); RBC Distribution Width SD 46.9 fl (35.1-43.9); Red Blood Count 4.55 M/mm3 (4.6-6.2); White Blood Count 5.6 K/mm3 (4.4-11.0)
[2020-02-21 08:11] LABS: AST(SGOT) 25 U/L (15-37); Alanine Aminotransfer ALT/SGPT 31 U/L (16-61); Albumin, Serum 3.9 g/dL (3.2-5.0); Alkaline Phosphatase 94 U/L (45-117); Anion Gap 5 (5-15); BUN 21 mg/dL (7-18); BUN/Creat Ratio 23.9 RATIO (10-20); Calcium,Total 9.1 mg/dL (8.5-10.1); Chloride 108 mmol/L (98-107); Creatinine, Serum 0.88 mg/dL (0.70-1.30); EST Glomerular Filtration Rate 94 mL/min (>60); Est Glom Filt Rate - Afr Amer 114 mL/min (>60); Globulin 3.8 g/dL (2.2-4.2); Glucose 111 mg/dL (74-106); LDH 212 U/L (87-241); Potassium 4.3 mmol/L (3.5-5.1); Protein, Total 7.7 g/dL (6.4-8.2); Sodium Level 140 mmol/L (136-145)
[2020-02-21] MEDS: 0.9% Saline Lock 10 ML Syringe IV (08:15)
[2020-02-22 05:17] LABS: Carcinoembryonic Antigen 1.1 ng/mL (0.0-4.7)
== END ==
PROVIDERS: PCP Family Medicine; Referring Provider Internal Medicine Medical Oncology; Visit Provider Internal Medicine Medical Oncology
DX: D50.9 Iron deficiency anemia, unspecified (principal); Z85.048 Personal history of other malignant neoplasm of rectum, rectosigmoid junction, and anus
CPT/HCPCS: 36415; 74177; 80053; 82378; 83615; 85025; Q9967; A4216

== ENCOUNTER → 2020-04-11 08:41 | Outpatient (CLI) | payer OTHER, SELFPAY ==
[2018-08-26 10:55] VITALS: BMI 32.5
[2020-04-11 08:29] VITALS: BMI 32.7
--- NOTE | 2020-04-11 08:42 | RAD_ITS ---
STUDY: X-RAY - LEFT KNEE REASON FOR EXAM: Male, 60 years old. Original injury as a teenager, pt. states he fell a few months ago, pain has increased lately TECHNIQUE: 4 view(s) of the knee. COMPARISON: None. FINDINGS: Normal visualized distal femur. Normal visualized proximal tibia and fibula. Normal proximal tibiofibular articulation. There is no demonstrated fracture. There is severe narrowing of the medial compartment with extensive marginal osteophytosis and flattening of the tibial plateau and medial femoral condyle. There is degenerative squaring of the lateral compartment. There is narrowing and extensive marginal osteophytosis of the patellofemoral compartment. There is a irregular 2.8 cm ossification in the suprapatellar pouch, loose body. A asymmetric joint space narrowing results in genu varum. Soft tissue swelling in the region of the infrapatellar tendon. RAD/Knee 4 or More Views IMPRESSION: Extensive degenerative changes in the medial and patellofemoral compartment. Mild degenerative squaring and osteophyte formation in the lateral compartment which is generally widened creating a genu varum deformity. 2.8 cm ossification in the suprapatellar pouch consistent with large loose body. Focal swelling of the infrapatellar tendon and/or associated soft tissues. Electronically Signed: Sera Robin MD at 17:07 EDT , Service support ,
== END ==
PROVIDERS: PCP Family Medicine; Referring Provider Orthopaedic Surgery; Visit Provider Orthopaedic Surgery
DX: M25.562 Pain in left knee (principal)
CPT/HCPCS: 73564

== ENCOUNTER → 2020-04-27 13:55 | Outpatient (CLI) | payer OTHER, SELFPAY ==
[2018-08-26 10:55] VITALS: BMI 32.5
[2020-04-27 13:24] VITALS: BMI 32.7
--- NOTE | 2020-04-27 14:24 | EKG12_ITS ---
Test Reason : HYPERTENSION Blood Pressure : / mmHG Vent. Rate : 076 BPM Atrial Rate : 076 BPM P-R Int : 164 ms QRS Dur : 100 ms QT Int : 392 ms P-R-T Axes : 057 -09 018 degrees QTc Int : 441 ms Normal sinus rhythm Normal ECG Confirmed by ROBYN PALMA, FIDEL ([id number]), video effects editor LEONID EGAN ([id number]) on 05/01/2020 10:59:41 AM Referred By: Fernanda Perez Confirmed By:FIDEL CARLSON MD
[2020-04-27 15:47] LABS: Cholesterol 181 mg/dL (200); High Density Lipoprotein 43 mg/dL; Triglycerides 95 mg/dL; Very Low Density Lipoprotein 19 mg/dL (5-40)
== END ==
LOC: BIMLAB 13:57 → PSN 14:21
PROVIDERS: PCP Internal Medicine; Referring Provider Internal Medicine; Visit Provider Internal Medicine
DX: Z01.818 Encounter for other preprocedural examination (principal); I10 Essential (primary) hypertension
CPT/HCPCS: 36415; 80061; 93005

== ENCOUNTER → 2020-05-10 15:28 | Outpatient (CLI) | payer OTHER, SELFPAY ==
[2018-08-26 10:55] VITALS: BMI 32.5
[2020-04-27 13:24] VITALS: BMI 32.7
[2020-05-04 10:52] VITALS: BMI 32.7
--- NOTE | 2020-05-10 15:29 | CT_ITS ---
Study: CT of the left lower extremity without contrast CLINICAL HISTORY: Left knee pain Previous study: None. PROCEDURE: Multiple computed tomographic images of the left hip to ankle region were obtained at 2.5 mm intervals using 2.5 mm thick slices in the axial projection. Coronal and sagittal reconstructions were obtained. This study was performed without intravenous contrast. Total radiation dose: Total exam DLP: 1203.68. FINDINGS: There is no evidence of fracture, dislocation, or significant degenerative disease of the left hip. Soft tissue fascial planes are preserved. There is incidentally noted a left inguinal hernia containing fat. There are severe hypertrophic tricompartmental degenerative changes of the left knee. There is severe narrowing of the medial knee joint space with sclerosis of the medial tibial plateau and adjacent femoral condyle noted. There are large osteophytes arising from the medial and lateral femoral condyles. There is a 1.0 cm lateral displacement of the proximal tibia relative to the distal femur. No free intra-articular calcifications are noted. There is a small suprapatellar effusion. There are degenerative changes with cyst formation of the navicular and adjacent cuneiform. CT/Extremity Lower without Contra IMPRESSION: Severe degenerative changes of the left knee as detailed above. Degenerative changes with cyst formation of the navicular and adjacent cuneiform. Left inguinal hernia containing fat is incidentally noted. Electronically Signed: Reginald Springer MD at 16:16 EDT , Service support ,
== END ==
PROVIDERS: PCP Internal Medicine; Visit Provider Orthopaedic Surgery
DX: M17.12 Unilateral primary osteoarthritis, left knee (principal)
CPT/HCPCS: 73700

== ENCOUNTER 2020-05-22 18:30 | Observation (INO) | payer OTHER, SELFPAY ==
[2018-08-26 10:55] VITALS: BMI 32.5
[2020-04-11 08:29] VITALS: BMI 32.7
[2020-05-15] MEDS: Cefazolin 2 GM in 0.9% Normal Saline 100 ML IV (13:46)
[2020-05-16 09:41] VITALS: BMI 31.8
[2020-05-22] VITALS (9 sets, daily range): BP systolic 123–155; BP diastolic 67–106; PULSE 63–91; RESP 12–20; TEMP 36–37.1; O2SAT 92–100; BMI 32.3
--- NOTE | 2020-05-22 10:05 | HP.PCM_ITS ---
History and Physical Date of Admission: 05/22/20 Intake Intake Visit Reasons: LEFT KNEE Is patient in pain?: Yes Allergies No Known Allergies Allergy (Verified 05/04/20 09:54) [facility] Medical History (Updated 04/27/20 @ 17:[address] Fernanda Perez MD) Rectal cancer (Resolved) Chemotherapy management, encounter for (Acute) Pruritus (Acute) Colostomy in place (Acute) Keratosis (Acute) Arthritis (Acute) GERD (gastroesophageal reflux disease) (Acute) Hematochezia (Acute) History of neuropathy (Acute) History of skin cancer (Acute) Osteoarthritis (Acute) Tumors (Acute) rectal tumor removed (Acute) Surgical History Hx of tooth extraction (Acute) History of resection of rectum (Acute) History of endoscopy (Acute) History of colonoscopy (Acute) Social History (Updated 05/04/20 @ 13:17 by CARLOS Urbano) Smoking Status: Never smoker second hand exposure: No alcohol intake: never substance use type: does not use caffeine: No what type of physical activity do you participate in: walking HPI LEFT KNEE: Details: Parts of this documentation were recorded by a scribe, this documentation accurately reflects the service provided and the decisions made by me, CARLOS Urbano 05/04/20 1051. MAGGIE ALVARADO is a 60 year old M here today for left knee Iovera treatmemt, his insurance denied the procedure so the patient has elected to proceed with self pay today. He continues to have left knee pain but is ambulating today without an assistive device. ROS Musc Reports as per HPI, Reports joint pain Skin/Breast Reports as per HPI Neuro Yes as per HPI Ortho Exam Left Knee Skin/Wound: Yes CDI, No ecchymosis, No erythema, No swelling Knee ROM: No ROM-Extension -20 to 0 (approx 15 degree lag), No ROM-Flexion 0-140 (approx 75) Examination: Yes med jt line tenderness, Yes Pain with flexion KNEE: Inspection of the left knee shows no acute findings. There is no localized or generalized swelling and no evident effusion. Patient does have evident varus deformity of the knee and evident osteophytic growth with bony protrusions noted on the medial tibial region as well as around the lateral patella. He has some minor tenderness on palpation of the medial joint line. Office Procedures Iovera Details:: Preoperative diagnosis : left knee pain Postoperative diagnosis: Same Procedure: Cryotherapy with Iovera device to anterior femoral cutaneous nerve and 2 branches of the infrapatellar saphenous nerve III nerves in total Description of procedure: Patient was brought back to the procedure room the operative extremity was identified by both patient and physician. The PIP flexion crease was measured to the midpoint of the patella and this distance was divided in 3 resulting in 14 cm location proximal to the midpoint of the patella. This line was extended medial and lateral to the extent of the edges of the patella. This was our treatment line for the anterior femoral cutaneous nerve. A second treatment line was made 5 cm medial to the inferior pole of the patella and 5 cm distally. The leg was prepped with alcohol and Betadine. Lidocaine with epi was used along the treatment lines. Using the Iovera device treatment lines were treated with 1 minute cycles. Reproduction of paresthesias was monitored in the area of nerve distribution. Once all 3 nerves were treated across the 2 treatment lines patient was cleaned and a light dressing with 4 x 4 and Butch wrap was applied. Patient tolerated the procedure without complication. SELF PAY Assessment & Plan Problems 1. Chronic pain of left knee M25.562; G89.29 Plan Reviewed the risks and benefits of Iovera injection and patient elects to proceed. Reviewed the pre op schedule and post op restrictions for the upcoming TKA. Follow up post op or sooner if pain, swelling, numbness or associated symptoms, or concerns develop. All questions answered. Patient in agreement of plan. Orders Orders: Iovera Today M25.569 Coding Level of Care Code Attention Yesenia Diagnoses Chronic pain of left knee M25.562; G89.29 ??Chronicity: chronic Comment Self pay for Iovera treatment. Procedure cost only (no office visit) I have re-examined the patient. There are no clinical changes since date of exam Procedure Criteria Procedure Type: Elective COVID Risk Discussion: The surgeon/proceduralist and patient have discussed in detail the risk of exposure to and/or potential harm posed by the COVID-19 virus with having a surgery/procedure at this time versus the risk of delaying the surgery/procedure. It is not possible to know either the risk of delaying the surgery or procedure or chance of getting an infection with perfect accuracy, but a joint decision was made between the patient and the surgeon/proceduralist to proceed at this time with the scheduled surgery/procedure as indicated on the consent form.
[2020-05-22 10:26] LABS: Bedside Glucose 83 mg/dL (70-110)
[2020-05-22] MEDS: Acetaminophen 500 MG Tablet 1000 MG PO ×2 (10:30→21:02)
[2020-05-22] MEDS: Gabapentin 600 MG Tablet PO (10:30)
[2020-05-22] MEDS: Scopolamine 1mg/72hr Patch 1 PATCH TRANSDERM. (10:30)
[2020-05-22] MEDS: Celecoxib 200 MG Capsule 400 MG PO (10:30)
[2020-05-22 11:02] LABS: Magnesium 2.1 mg/dL (1.6-2.6)
[2020-05-22] MEDS: Lactated Ringers 1,000 ML 100 ML IV ×2 (11:05→16:00)
[2020-05-22] MEDS: Cefazolin 2 GM in 0.9% Normal Saline 100 ML IV (13:46)
[2020-05-22] MEDS: dexAMETHasone 10 MG/ML Vial IV (13:50)
[2020-05-22] MEDS: Bupivacaine Mpf 0.5% 30 ML VIAL (16:00)
[2020-05-22] MEDS: Betamethasone/Betamethasone 30 MG/5 ML Vial (16:00)
[2020-05-22] MEDS: 0.9% Normal Saline (Pres. free 10 ML Vial ×2 (16:00)
[2020-05-22] MEDS: Epinephrine (1 mg/ml) 1 MG/ML VIAL (16:00)
--- NOTE | 2020-05-22 16:57 | OP.PCM_ITS ---
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 contracture and flexion stiffness Postoperative diagnosis: Same Procedure: Left total knee arthroplasty CT guided Robotic Assisted Implant: Freehold triathlon press fit femoral component size7, press-fit tibial baseplate size 8, press fit asymmetric patella size 44, polyethylene X3 size 9 CS Anesthesia: General with adductor canal block Tourniquet time: 60 minutes at 300 mmHg Complications: None Condition: Stable to PACU Estimated blood loss: 200 cc Indication for procedure: This is a 89-year-old male with long standing degenerative joint disease of the knee who has failed conservative treatment and wished to proceed with elective total knee arthroplasty. He did have a significant 18 degree flexion contracture 14 degree varus deformity with only 85 degrees of flexion, risk benefits and alternatives were reviewed including; risk of bleeding, infection, nerve artery and tissue damage, continued pain, postoperative stiffness, venous thromboembolism, need for postoperative rehabilitation, mechanical feel to the knee, and expected postoperative course. The operative CT and templating was performed with component sizing Procedure: The patient was met in the preoperative holding area. The operative extremity was identified by both patient and physician and was marked. Patient was met by anesthesia. An adductor canal block was placed by anesthesia postoperatively the patient was brought back to the operating room on a wheeled cart and transferred to the operating table in the supine position. Anesthesia was started. A well-padded tourniquet was placed on the operative extremity. The patient was prepped and draped in the usual sterile fashion. A timeout was called to ensure the proper patient procedure and extremity were being co ntemplated. An Esmarch was used to exsanguinate the extremity. The tourniquet was inflated. A 10 blade scalpel was used to make a midline incision down through the skin and subcutaneous tissue. Skin retractors placed. Bovie was used to perform meticulous hemostasis. full-thickness flaps were elevated medial and lateral along the joint capsule. A deep blade scalpel was used to perform a medial parapatellar arthrotomy. The knee was brought to full extension. A Bovie was used to release the soft tissues off the most proximal aspect of the medial tibial plateau a three-quarter inch curved osteotome was also used for this process. The infrapatellar fat pad was excised. The fat pad was excised partially anterior lateral portion the anterior medial was elevated from the femur. At this point our intra-articular femoral array was placed of a 45 degree angle proximal and posterior to the medial epicondyle. Our tibial array was placed greater than 1 hands breath below the incision at a 20 degree angle stab incisions were used for this case were attached and checked with the robotic software. Tourniquet was let down. At this point registration kilpatrick were taken throughout the knee as well as checkpoints placed in the femur and tibia once the knee was registered then tensioned the medial and lateral ligaments in extension and 90 degrees of flexion. We then used these numbers to adjust our components within parameters to balance the knee in both flexion and extension once this was done on our monitor we then proceeded with using the robotic arm to make our tibial plateau cut and anterior posterior and chamfer cuts on the femur we then trialed and achieved the desired plan with a well- balanced knee. Lug holes were drilled in the femur the tibia preparation was completed with a fin punch and the patella was prepared by first using a caliper to ensure sufficient bone stock and a patellar reamer to remove the desired amount of bone locals were drilled for an asymmetric poly-. We then brought the knee through range of motion with excellent patellar tracking. We thoroughly irrigated the knee with a trial components were removed a posterior capsular injection with her standard cocktail was performed the aqua Mantis was also used to aid in hemostasis. Betadine rinse was allowed to sit and washed out components were press-fit into place. Aricept rinse was then used followed by several more rate liters of irrigation after it was allowed to sit. Joint capsule was closed with #1 Ethibond axduoe-cu-wwkvo's followed by Vicryl in the subcutaneous tissues staple in the skin arrays and checkpoints were removed prior to closure all counts were correct stab incisions were closed with a stable standard dressing in the form of Mepilex for the main incision Xeroform 4 x 4 and Tegaderm over pin site holes. Thigh-high ALEKSANDR hose applied over top of dressing. Patient tolerated the procedure well and was directed to PACU in stable condition no intraoperative complications
--- NOTE | 2020-05-22 17:20 | RAD_ITS ---
STUDY: X-RAY - LEFT KNEE REASON FOR EXAM: Male, 60 years old. POST OP LEFT KNEE TECHNIQUE: 2 view(s) of the knee. COMPARISON: Previous study of 04/11/2020 FINDINGS: Status post total left knee replacement changes are noted with implants appearing in good position. Skin harshil are seen anteriorly. Soft tissue gas is noted in the region of surgery. RAD/Knee 1 or 2 Views IMPRESSION: Status post total left knee replacement changes noted with implants appearing in good position. Electronically Signed: Reginald Springer MD at 17:43 EDT , Service support ,
[2020-05-22] MEDS: Cefazolin 1 GM/50 ML BAG IV (18:07)
[2020-05-22] MEDS: Senna/Docusate Sodium 1 Tablet 2 TABLET PO (21:02)
[2020-05-22] MEDS: Ondansetron 4 MG/2 ML Vial IV (21:03)
[2020-05-23 00:30] VITALS: RESP 18
[2020-05-23] MEDS: Lactated Ringers 1,000 ML 125 ML IV ×2 (01:58→06:07)
[2020-05-23] MEDS: Cefazolin 1 GM/50 ML BAG IV ×2 (02:02→10:30)
[2020-05-23 02:52] VITALS: BP 113/62; PULSE 83; RESP 18; TEMP 36.7; O2SAT 98
[2020-05-23 06:05] LABS: Hematocrit 31.8 % (40-54); Hemoglobin 10.4 g/dL (13.0-16.5); Mean Corp Hgb Conc 32.7 g/dL (32-36); Mean Corpuscular Hgb 30.7 pg (27.0-32.0); Mean Corpuscular Volume 93.8 fL (80-94); Mean Platelet Vol. 9.5 fl (6.2-12.0); Platelet Count 236 K/mm3 (150-450); RBC Distribution Width CV 13.7 % (11.6-14.6); RBC Distribution Width SD 46.3 fl (35.1-43.9); Red Blood Count 3.39 M/mm3 (4.6-6.2); White Blood Count 12.1 K/mm3 (4.4-11.0)
[2020-05-23] MEDS: Acetaminophen 500 MG Tablet 1000 MG PO ×2 (06:08→14:11)
[2020-05-23] MEDS: APIXABAN 2.5 MG TABLET PO (06:09)
[2020-05-23 06:30] LABS: Anion Gap 6 (5-15); BUN 15 mg/dL (7-18); BUN/Creat Ratio 19.4 RATIO (10-20); Chloride 106 mmol/L (98-107); Creatinine, Serum 0.78 mg/dL (0.70-1.30); EST Glomerular Filtration Rate 109 mL/min (>60); Est Glom Filt Rate - Afr Amer 132 mL/min (>60); Estimated Creatinine Clearance 118.56 ml/min; Glucose 133 mg/dL (74-106); Potassium 4.3 mmol/L (3.5-5.1); Sodium Level 137 mmol/L (136-145)
--- NOTE | 2020-05-23 07:36 | DCINST_ITS ---
Discharge Diet: 2000 Calorie Control Diet Weight Bearing Status: Weight bearing as tolerated Call your doctor if you observe: Shortness of breath, Chest pain Suture Line Care: Avoid Pulling/Pushing Additional Instructions: Ice and elevate one week while not ambulating. Ambulation is encouraged. Weightbearing as tolerated. Use assistive devise for stability. Encourage FULL knee extension and flexion 1 time EVERY time you get up and down and MULTIPLE times per day. No showering 72 hours after surgery. Begin showering postop day #3. Remove the dressing prior to shower and gently wash with warm water and antibacterial soap then pat dry and place abdominal pad (or plain gauze) and ALEKSANDR hose over top. This is to be done daily. Do not submerge for 3 weeks. If not showering daily after the initial 72 hours then you must clean incision and change dressing daily. Do not allow animals near the incision area. Keep clean. Follow anticoagulation recommendations as prescribed. Do not take any NSAIDs while on blood thinner. Do not take any additional narcotic pain medication other than what was perscribed on you surgery day without discussing with physician. Start physical therapy. If you are not currently scheduled for physical therapy or you are unsure of appointment time please call office [facility] to arrange. Call Dr. Rankin with any concerns. avoid strenous activity Allergies/Adverse Reactions: Allergies No Known Allergies Allergy (Verified 05/22/20 10:42) Medications to take at Discharge Multivitamin [Multiple Vitamins] 1 ea PO DAILY 08/09/18 ferrous sulfate 325 mg (65 mg iron) tablet 325 mg PO DAILY tab 01/19/19 Docusate Sodium [Stool Softener] 100 mg PO DAILY 03/29/20 Omeprazole [Prilosec] 20 mg PO DAILY 05/16/20 Acetaminophen [Tylenol] 1,000 mg PO Q6H #100 tab 05/23/20 Apixaban [Eliquis] 2.5 mg PO BID #28 tab 05/23/20 Oxycodone [Oxyir] 5 - 10 mg PO Q4H PRN PRN #60 tab 05/23/20 The following prescriptions were given: Apixaban [Eliquis] 2.5 mg PO BID #28 tab Transmission Status: Pending to [facility] Oxycodone [Oxyir] 5 - 10 mg PO Q4H PRN PRN #60 tab PRN Reason: Pain Score 6-10/10 Transmission Status: Sent to [facility] Acetaminophen [Tylenol] 1,000 mg PO Q6H #100 tab Transmission Status: Sent to [facility] Primary Care Physician: Fernanda Perez MD [Primary Care Provider] - Test Results: Test results from this visit will be discussed in further detail at your follow- up appointment, if applicable. Please Follow Up With: Shaheen Rankin DO - 2 week
--- NOTE | 2020-05-23 07:37 | PCM.DC.SUM ---
Discharge Date and Diagnosis Date of Admission: 05/22/20 Date of Discharge: 05/23/20 - Secondary Discharge Diagnosis Chronic Problems: Chronic Problems (Last Reviewed 05/16/20 @ 09:39 by Loli Samuels) Hypertension (Chronic) History of rectal cancer (Chronic) Hospital Course and Treatment Operations: total knee replacement Summary of Care Provided: The patient is a 60 year old M who has long history of degenerative joint disease to the knee who has failed conservative treatment and wished to undergo elective total knee arthroplasty. Patient underwent the aformentioned procedure on the admission date without any intraoperative complications. Patient did receive pre-and postoperative antibiotics which were discontinued within 23 hours postoperatively. Patient did receive [general anesthesia as well as an adductor canal block postoperatively]. pain was controlled with IV and transition to p.o. pain medication Patient will be discharged home with oxycodone and will continue Tylenol as well. Patient had minimal intraoperative blood loss and 2gm tranexamic acid was administered there was no need for postoperative blood transfusion Patients vital signs remained stable. Patient was started on both mechanical and chemical DVT per prophylaxis postoperatively in the form of SCDs ALEKSANDR hose and [Eliquis 2.5 mg twice daily for which she will continue for 2 additional weeks post hospital discharge]. Butch removed post op day number one and thigh high aleksandr hose placed over top of the meplix silver dressing. This should be removed 72 hrs post operatively and showering begun daily at that time with warm water and antibacterial soap. not to submerge for 3 weeks. To change dressing daily after first dressing change. Patient will follow-up in the office in 2 weeks. No intrahospital complications. - Physical Exam Vitals/I&O's: Vital Signs Temp Pulse Resp BP Pulse Ox 98.0 F 83 18 113/62 98 05/23/20 02:52 05/23/20 02:52 05/23/20 02:52 05/23/20 02:52 05/23/20 02:52 Oxygen Flow Rate (L/min) 6 Oxygen Delivery Method Room Air Weight: 251 lb 15.814 oz Body Mass Index (BMI) 32.3 Intake and Output for Last 24 Hours 05/21/20 05/22/20 05/23/20 23:59 23:59 23:59 Intake Total 1787 / 2287 854.17 / 854.17 Output Total 500 / 500 Balance 1787 / 2287 354.17 / 354.17 General: Alert, Oriented x3, Cooperative, No apparent distress Extremities: - - Dressing clean dry intact compartments soft no significant ecchymosis no sign of infection neurovascular intact EHL tibialis anterior gastrocsoleus intact with patient light touch palpable pedal pulses Laboratory Results 05/22/20 10:23: POC Glucose 83 05/22/20 10:35: Magnesium 2.1 05/23/20 05:46: WBC 12.1 H, RBC 3.39 L, Hgb 10.4 L, Hct 31.8 L, MCV 93.8, MCH 30.7, MCHC 32.7, RDW Std Deviation 46.3 H, RDW Coeff of Fausto 13.7, Plt Count 236, MPV 9.5 05/23/20 05:46: Sodium 137, Potassium 4.3, Chloride 106, Carbon Dioxide 25.0, Anion Gap 6, BUN 15, Creatinine 0.78, Estim Creat Clear Calc 118.56, Est GFR (MDRD) Af Amer 132, Est GFR (MDRD) Non-Af 109, BUN/Creatinine Ratio 19.4, Glucose 133 H, Calcium 8.0 L Current Medications Acetaminophen (Tylenol) 1,000 mg PO Q8 [facility] Last Admin: 05/23/20 06:08 Dose: 1,000 mg Documented by: Apixaban (Eliquis) 2.5 mg PO BID [facility] Last Admin: 05/23/20 06:09 Dose: 2.5 mg Documented by: Hydromorphone HCl (Dilaudid Inj) 0.5 mg IV Q2H PRN PRN PRN Reason: Pain Score 6-10/10 Lactated Ringer's () 1,000 mls @ 125 mls/hr IV .Q8H [facility] Last Admin: 05/23/20 06:07 Dose: 125 mls/hr Documented by: Cefazolin Sodium () 1 gm in 50 mls @ 100 mls/hr IV Q8H [facility] Stop: 05/23/20 10:29 Last Infusion: 05/23/20 02:47 Dose: Infused Documented by: Insulin Human Lispro (Humalog Kwikpen (Bkc)) 1 - 6 unit SC Q4H PRN PRN; Protocol PRN Reason: BG>/= 180, SEE PROTOCOL Nutritional Formula (Lactose Free) (Ensure Clear) 120 ml PO 4X/DAY [facility] Ondansetron HCl (Zofran) 4 mg IV Q6H PRN PRN PRN Reason: NAUSEA Last Admin: 05/22/20 21:03 Dose: 4 mg Documented by: Oxycodone HCl (Oxyir) 5 - 10 mg PO Q4H PRN PRN PRN Reason: Pain Score 4-10/10 Senna/Docusate Sodium (Senokot-S, Cheri-Colace) 2 tablet PO BID [facility] Last Admin: 05/22/20 21:02 Dose: 2 tablet Documented by: Discharge Diet: 1999 Calorie Control Diet Weight Bearing Status: Weight bearing as tolerated Call your doctor if you observe: Shortness of breath, Chest pain Suture Line Care: Avoid Pulling/Pushing Home Medications: Medications to take at Discharge Multivitamin [Multiple Vitamins] 1 ea PO DAILY 08/09/18 ferrous sulfate 325 mg (65 mg iron) tablet 325 mg PO DAILY tab 01/19/19 Docusate Sodium [Stool Softener] 100 mg PO DAILY 03/29/20 Omeprazole [Prilosec] 20 mg PO DAILY 05/16/20 Acetaminophen [Tylenol] 1,000 mg PO Q6H #100 tab 05/23/20 Apixaban [Eliquis] 2.5 mg PO BID #28 tab 05/23/20 Oxycodone [Oxyir] 5 - 10 mg PO Q4H PRN PRN #60 tab 05/23/20 Following Prescrptions Were Given to Patient: Apixaban [Eliquis] 2.5 mg PO BID #28 tab Transmission Status: Pending to [facility] Oxycodone [Oxyir] 5 - 10 mg PO Q4H PRN PRN #60 tab PRN Reason: Pain Score 6-10/10 Transmission Status: Sent to [facility] Acetaminophen [Tylenol] 1,000 mg PO Q6H #100 tab Transmission Status: Sent to [facility] Primary Care Physician: Fernanda Perez MD [Primary Care Provider] - Please Follow Up With: Shaheen Rankin DO - 2 week Additional Instructions: Ice and elevate one week while not ambulating. Ambulation is encouraged. Weightbearing as tolerated. Use assistive devise for stability. Encourage FULL knee extension and flexion 1 time EVERY time you get up and down and MULTIPLE times per day. No showering 72 hours after surgery. Begin showering postop day #3. Remove the dressing prior to shower and gently wash with warm water and antibacterial soap then pat dry and place abdominal pad (or plain gauze) and ALEKSANDR hose over top. This is to be done daily. Do not submerge for 3 weeks. If not showering daily after the initial 72 hours then you must clean incision and change dressing daily. Do not allow animals near the incision area. Keep clean. Follow anticoagulation recommendations as prescribed. Do not take any NSAIDs while on blood thinner. Do not take any additional narcotic pain medication other than what was perscribed on you surgery day without discussing with physician. Start physical therapy. If you are not currently scheduled for physical therapy or you are unsure of appointment time please call office [facility] to arrange. Call Dr. Rankin with any concerns. avoid strenous activity Medical Necessity - Tobacco Use Smoking Status: Never smoker Tobacco Use: Non-smoker Meaningful Use Info Meaningful Use Diagnoses (Choose all that apply): None applicable
[2020-05-23 08:00] VITALS: BP 126/67; PULSE 74; RESP 18; TEMP 36.8; O2SAT 98
[2020-05-23] MEDS: Senna/Docusate Sodium 1 Tablet 2 TABLET PO (10:32)
[2020-05-23] MEDS: Ensure Clear 120 ML Liquid PO (10:35)
--- NOTE | 2020-05-23 10:55 | CASEMGMT ---
[facility] Face to Face with patient for initial transition planning/care coordination assessment. VU BONE introduced self and role at [facility]. Patient sitting in chair, alert and oriented. Patient willing to participate in assessment and is able to answer all questions appropriately. Care providers, pharmacy, and demographics verified. Patient wishes to discharge home and thinks he scheduled for therapy at [facility]. Patient states he has no further needs or concerns at this time. CM to follow for discharge planning needs that may arise. PCP: Chris Specialists: Massiel Timmons Pharmacy: [facility] Insurance: [facility] Prescription Benefit: yes Living Will/HPOA: none LNOK: Living Arrangements: Patient lives with in handicap accessible home with ramp to enter the home. Patient states he was independent at home prior to surgery. Transportation: , neighbor DME/HHC: Patient states he has raised toilet, cane, and walker at home. [facility]U B[facility] called [facility] to verify appt. Patient does not have appt scheduled. [facility]U [facility]ONE request appt with [facility]. Appt scheduled for 05/23/20 1030. VU BONE updated the patient. Disposition Plan: Patient to discharge home with outpatient therapy, family support, and follow-up plans in place. Lindy BEAN, RN, CM
--- NOTE | 2020-05-23 11:40 | PHA.DC.MC ---
Pharmacy Service has performed discharge medication reconciliation and counseling for this patient. 1. ACETAMINOPHEN 1000MG PO Q6H 2. APIXABAN 2.5MG PO BID X 14 DAYS 3. OXYCODONE 5-10MG PO Q4H PRN SEVERE PAIN The patient's discharge medication list was reviewed for discrepancies and discrepancies were resolved. Home Medications Multivitamin [Multiple Vitamins] 1 ea PO DAILY 08/09/18 ferrous sulfate 325 mg (65 mg iron) tablet 325 mg PO DAILY tab 01/19/19 Docusate Sodium [Stool Softener] 100 mg PO DAILY 03/29/20 Omeprazole [Prilosec] 20 mg PO DAILY 05/16/20 Acetaminophen [Tylenol] 1,000 mg PO Q6H #100 tab 05/23/20 Apixaban [Eliquis] 2.5 mg PO BID #28 tab 05/23/20 Oxycodone [Oxyir] 5 - 10 mg PO Q4H PRN PRN #60 tab 05/23/20 The patient was counseled on the following discharge medications and changes in medications for homegoing were reviewed. The Reason for Use, instructions for use, and potential side effects were reviewed for all new medications. The patient's questions regarding all of their medications were answered. The patient was able to verbally demonstrate an understanding of their discharge medications. Patient was counseled by pharmacy picking technician, Johnathon.
[2020-05-23] MEDS: oxyCODONE 5 MG Tablet PO (12:53)
[2020-05-23] MEDS: 0.9% Saline Lock 10 ML Syringe IV (14:11)
[2020-05-23 14:44] VITALS: BP 142/72; PULSE 88; RESP 18; TEMP 37.2; O2SAT 100
== END 2020-05-23 15:02 | disposition home or self-care (01) ==
LOC: SDC 05-23 08:41 → MS3 05-23 08:41
PROVIDERS: Anesthesiology; Admitting Provider Orthopaedic Surgery; PCP Internal Medicine; Referring Provider Orthopaedic Surgery; Visit Provider Orthopaedic Surgery
PROC: 0SRD0JZ Replacement of Left Knee Joint with Synthetic Substitute, Open Approach (ICD-10-PCS; CPT 27447; principal; 2020-05-22 12:45)
DX: M17.12 Unilateral primary osteoarthritis, left knee (principal); M21.162 Varus deformity, not elsewhere classified, left knee; Z11.59 Encounter for screening for other viral diseases; K21.9 Gastro-esophageal reflux disease without esophagitis; Z79.899 Other long term (current) drug therapy; I10 Essential (primary) hypertension; Z85.048 Personal history of other malignant neoplasm of rectum, rectosigmoid junction, and anus; Z86.2 Personal history of diseases of the blood and blood-forming organs and certain disorders involving the immune mechanism
CPT/HCPCS: 01400; 27447; 64447; S2900; 36415; 73560; 80048; 82962; 83735; 85027; 87635; 96365; 96366; 96375; 97116; 97162; 97166; 97530; 99218; 99251; C1776; G2023; J7120; A4216; G0378; G0379; G0463; J0702; J2405; J3490; U0003

== ENCOUNTER → 2020-07-02 09:43 | Outpatient (CLI) | payer OTHER, SELFPAY ==
[2018-08-26 10:55] VITALS: BMI 32.5
[2020-07-02 07:59] VITALS: BMI 32.3
--- NOTE | 2020-07-02 09:44 | RAD_ITS ---
STUDY: X-RAY - LEFT KNEE REASON FOR EXAM: Male, 60 years old. Postop follow-up. TECHNIQUE: 4 view(s) of the knee. COMPARISON: 05/22/2020. FINDINGS: Metallic knee prosthesis remaining good anatomic alignment. Persistent soft tissue swelling with interval resolution of the postoperative air. Interval removal of the overlying surgical harshil. Normal proximal fibula. Normal proximal tibiofibular articulation. Decreased soft tissue swelling. RAD/Knee 4 or More Views IMPRESSION: 1. Postoperative fluid causing swelling of the left knee but interval resorption of the postoperative air emphysema with removal of the overlying surgical harshil. 2. Metallic knee arthroplasty remain in good anatomic alignment and without significant change when compared to 05/22/2020. Electronically Signed: Aniket Valentine MD at 10:08 EDT , Service support ,
== END ==
PROVIDERS: PCP Internal Medicine; Referring Provider Orthopaedic Surgery; Visit Provider Orthopaedic Surgery
DX: Z47.89 Encounter for other orthopedic aftercare (principal)
CPT/HCPCS: 73564

== ENCOUNTER 2020-07-09 09:30 | Outpatient (RCR) | payer OTHER, SELFPAY ==
[2018-08-26 10:55] VITALS: BMI 32.5
[2020-04-27 13:24] VITALS: BMI 32.7
[2020-05-22 19:56] VITALS: BMI 32.3
--- NOTE | 2020-05-25 11:27 | HP.PTEVAL_ITS ---
Patient's Visit Information MAGGIE ALVARADO is a 60 year old M referred to Physical Therapy by Dr. Shaheen Rankin DO with a diagnosis of L TKA 05/22/20. Date of Evaluation: 05/25/20 Physical Therapist: Thomas Cantu PT, ATC - Visit Plan Frequency: 2-3x /Week Duration: 4-6 Weeks Plan: L knee PROM/mobs, AROM, stretching and strengthening, balance and proprio, core strengthening, nustep, and HEP - Subjective DOS: 05/22/2020. Pt reports he had a chronic Hx of L knee pain prior to having his L TKA. Pt reports his L knee and foot were significantly swollen prior to having this surgery. Pt reports his pain is getting a little better at this t aishwarya. Pt complains of the worst pain yamini where his tournaquet was. Pt notes tingling around his incisions, but no other tingling or numbness. Pt reports he has had sleep difficulty secondary to LBP. Pt has no stairs he has to negotiate at this time, but is able to negotiate stairs one step at a time. Pt reports his pain is 3/10 at rest, 6/10 at worst (getting into bed) - Pain L TKA Pain Intensity (Out of 10): 3 Pain Intensity Range: 6 - Objective Neuro: B LE sensation is WNL to light touch with exception to L lat knee. B achilles reflex= 1/3. ROM: L knee 0-18-74, R knee 0-120 degrees. MMT: L knee 2/5, R knee 5/5. Girth at joint line: R knee 39 cm, L knee 48 cm - Goals Goal 1:: Decrease L knee pain x 50% to aid with IADL's Goal Time Frame: 6-8 Weeks Goal 2:: Increase L knee ROM x 40 degrees to aid with restoring a more normalized gait pattern Goal Time Frame: 6-8 Weeks Goal 3:: Increase L knee strength x 2 muscle grades to aid with RTW without limitation Goal Time Frame: 6-8 Weeks Goal 4:: I with HEP Goal Time Frame: 6-8 Weeks - Rehabilitation Potential Physical Therapy Diagnosis: Pt has L knee pain, swelling, and limited ROM secondary to L TKA Rehabilitation Potential: Good - Anticipated Interventions Patient/Client Instruction: Educate patient on: Condition, Plan of Care For the Purpose of:: To improve self management Therapeutic Exercise to Include: Strength training, Endurance training, Balance training, Flexibilty training, Gait and locomotor training, Passive ROM, Active ROM, Dynamic Lumbar Stabilization For the Purpose of:: To decrease pain, To increase ROM, To improve muscle performance and motor function Manual Therapy Techniques to Include: Mobilization, Passive ROM For the Purpose of:: To decrease pain, To increase ROM Cryotherapy (ice pack, ice massage): Yes For the Purpose of:: To decrease pain Thank you for the opportunity to evaluate your patient. For Medicare and Medicare HMO plans, please review the plan of care and approve it. It will need to be FAXED BACK to us at [phone] for Medicare purposes. For Medicare only, by signing this I certify the plan of care. Please let me know if there are questions or concerns regarding this plan of care. Physician Signature: Date:
--- NOTE | 2020-07-09 10:12 | HP.PTDCSUM ---
It has been my pleasure to treat MAGGIE ALVARADO referred by Dr. Shaheen Rankin DO, with the diagnosis of L TKA 05/22/20 for a total of 10 visit(s). Discharge Date: Please see the following information for a summary of their discharge status. Subjective: I have no pain, just tightness L TKA Pain Intensity (Out of 10): 0 % Improvement: 75 Objective/Function: L knee pain 0/10. L LE MMT: 5/5 throughout. L knee ROM: 0-10-100. L knee Girth 45.5 cm. I with HEP. Rx goals achieved Goal 1:: Decrease L knee pain x 50% to aid with IADL's Goal Progress: Goal Met Goal 2:: Increase L knee ROM x 40 degrees to aid with restoring a more normalized gait pattern Goal Progress: Goal Met Goal 3:: Increase L knee strength x 2 muscle grades to aid with RTW without limitation Goal Progress: Goal Met Goal 4:: I with HEP Goal Progress: Goal Met Plan: Discharge If there are questions or concerns regarding this patient's physical therapy, please feel free to call me at [phone]. Thank you for the referral of this patient. Sincerely, Thomas Cantu, PT, ATC
== END 2020-07-09 19:00 | disposition home or self-care (01) ==
LOC: PT 09:30
PROVIDERS: PCP Internal Medicine; Referring Provider Orthopaedic Surgery; Visit Provider Orthopaedic Surgery
DX: Z96.652 Presence of left artificial knee joint (principal)
CPT/HCPCS: 97110; 97140; 97161; 97164

== ENCOUNTER → 2020-08-03 09:12 | Outpatient (CLI) | payer OTHER, SELFPAY ==
[2018-08-26 10:55] VITALS: BMI 32.5
[2020-08-03 08:49] VITALS: BMI 32.3
[2020-08-03 12:49] LABS: Anion Gap 4 (5-15); BUN 20 mg/dL (7-18); BUN/Creat Ratio 24.6 RATIO (10-20); Calcium,Total 8.9 mg/dL (8.5-10.1); Chloride 108 mmol/L (98-107); Creatinine, Serum 0.81 mg/dL (0.70-1.30); EST Glomerular Filtration Rate 103 mL/min (>60); Est Glom Filt Rate - Afr Amer 125 mL/min (>60); Glucose 113 mg/dL (74-106); Potassium 4.2 mmol/L (3.5-5.1); Sodium Level 138 mmol/L (136-145)
== END ==
PROVIDERS: PCP Internal Medicine; Referring Provider Internal Medicine; Visit Provider Internal Medicine
DX: I10 Essential (primary) hypertension (principal)
CPT/HCPCS: 36415; 80048

== ENCOUNTER → 2021-09-13 10:20 | Outpatient (CLI) | payer OTHER, SELFPAY ==
[2018-08-26 10:55] VITALS: BMI 32.5
--- NOTE | 2021-09-12 | LES_PTH ---
PATIENT: MAGGIE [facility]VARADO [id number] AGE/SX: 65/M ROOM: RE09/13/[address]: Dr. Reinier Ledbetter MD : 1960 BED: DIS: SPEC #: [id number] RECD: 09/13/21 11:15 STATUS: [place] #: [id number] [place]: 09/12/21 00:[address]: Reinier Ledbetter DEPT: SURGICAL PATHOLOGY RECD BY: Murtaza Melchor ENTERED: 09/13/21 11:15 SP TYPE: Lesion OTHR DR: Dr. Fernanda Perez MD Tissues: Skin of back, NOS Procedures: Surgery Specimen Level IV HEADER OPERATION: Excision back lesion PRE-OP DIAGNOSIS: Back skin lesion TISSUE SUBMITTED: Back tissue MICROSCOPIC DIAGNOSIS Back lesion, excisional biopsy: Mild actinic keratosis with verrucous keratosis-like features. Negative for malignancy. See comment. SJ:terrence 09/16/2021 COMMENT Clinical correlation and appropriate follow up are necessary. MICROSCOPIC DESCRIPTION Slides are reviewed. GROSS DESCRIPTION Received in fixative is one container labeled with the patient's name and designated back. The specimen consists of a piece of hutchinson-white skin ellipse measuring 1.5 x 0.5 cm and up to 0.6 cm in thickness. The specimen is inked, serially sectioned and submitted entirely in one cassette. / LORETTA:terrence 09/13/21 TC:5 CPT: 46196
== END ==
PROVIDERS: PCP Internal Medicine; Visit Provider Surgery
DX: L98.9 Disorder of the skin and subcutaneous tissue, unspecified (principal)
CPT/HCPCS: 88305

== ENCOUNTER → 2021-09-16 08:16 | Outpatient (CLI) | payer OTHER, SELFPAY ==
[2018-08-26 10:55] VITALS: BMI 32.5
--- NOTE | 2021-09-16 08:18 | CT_ITS ---
STUDY: CT ABDOMEN AND PELVIS WITH CONTRAST REASON FOR EXAM: Male, 61 years old. HX OF RECTAL CANCER. Six-month follow-up following radiation and chemotherapy. Colostomy. RADIATION DOSAGE (If Supplied By Facility): CTDIvol = ( 19.85 ) mGy, DLP = ( 1241.54 ) mGycm TECHNIQUE: Transaxial images were obtained from the dome of the diaphragm to the symphysis pubis with oral contrast. Oral and amp; IV Readi-CAT and amp; 100mL Isovue-300 was administered. Sagittal and coronal images were reconstructed. Individualized dose optimization techniques were used for this CT. COMPARISON: Comparison is made with prior study dated 02/21/2020. FINDINGS: The visualized lung bases are unremarkable. The visualized portions of the heart are within normal limits. There is decreased attenuation of the liver consistent with steatosis. Normal gallbladder and extrahepatic biliary system. Normal spleen. Normal pancreas. Normal bilateral adrenal glands. Normal right kidney. Normal left kidney. There is a small hiatal hernia. Normal small intestine. A colostomy is seen in the left anterior mid abdomen. The patient is status post resection of the rectosigmoid colon. Since prior study, there has been a decrease in the soft tissue prominence in the presacral space most likely secondary to prior surgical intervention. The appendix is visualized and appears normal. Normal abdominal aorta. Normal inferior vena cava. Normal retroperitoneum. Mild degree of gallbladder wall thickening. The bladder is seen in the deep portion. There is a small umbilical hernia containing fat. Small bilateral inguinal hernias containing fat more prominent on the right side. There are diffuse degenerative changes of the visualized lumbar spine. CT/Abdomen/Pelvis WITH Contrast IMPRESSION: Status post resection of the rectosigmoid colon with a colostomy in the anterior left mid abdomen. Stable appearance of the umbilical hernia as well as bilateral inguinal hernias worse on the left side. Interval decrease in the presacral soft tissue density as compared to prior examination. Electronically Signed: Hugo Gan MD at 9:59 EST , Service support ,
[2021-09-16 08:46] LABS: CREATININE FINGERSTICK 0.7 mg/dL (0.70-1.30); EGFR FINGERSTICK > 60.0000 mL/min (>60)
== END ==
PROVIDERS: PCP Internal Medicine; Referring Provider Internal Medicine Medical Oncology; Visit Provider Internal Medicine Medical Oncology
DX: Z85.048 Personal history of other malignant neoplasm of rectum, rectosigmoid junction, and anus (principal)
CPT/HCPCS: 74177; Q9967; A4216

== ENCOUNTER 2021-12-27 09:41 | Outpatient (CLI) | payer OTHER, SELFPAY ==
[2018-08-26 10:55] VITALS: BMI 32.5
[2021-12-27 12:26] LABS: Cholesterol 188 mg/dL (200); High Density Lipoprotein 40 mg/dL; Triglycerides 141 mg/dL; Very Low Density Lipoprotein 28 mg/dL (5-40)
== END 2021-12-27 23:59 | disposition home or self-care (01) ==
LOC: BIMLAB 09:42
PROVIDERS: PCP Internal Medicine; Referring Provider Internal Medicine; Visit Provider Internal Medicine
DX: I10 Essential (primary) hypertension (principal)
CPT/HCPCS: 36415; 80061

== ENCOUNTER → 2022-03-17 | Outpatient (CLI) | payer OTHER, SELFPAY ==
[2018-08-26 10:55] VITALS: BMI 32.5
[2022-03-17 08:03] LABS: Absolute Lymphocyte Count 0.77 X10^3/uL (0.83-4.51); Absolute Neutrophil Count 4.3 X10^3/uL (2.0-7.7); Basophil# 0.03 X10^3/uL; Basophil% 0.5 % (0-1); Eosinophil# 0.09 X10^3/uL; Eosinophils% 1.6 % (0-5); Hematocrit 41.6 % (40-54); Hemoglobin 13.8 g/dL (13.0-16.5); Lymphocyte # 0.77 X10^3/ul (0.83-4.51); Lymphocyte % 13.3 % (19-41); Mean Corp Hgb Conc 33.2 g/dL (32-36); Mean Corpuscular Hgb 30.5 pg (27.0-32.0); Mean Corpuscular Volume 91.8 fL (80-94); Mean Platelet Vol. 9.4 fl (6.2-12.0); Monocyte# 0.61 X10^3/uL; Monocyte% 10.6 % (0-10); NRBC Flagged by Analyzer 0 % (0-5); Neutrophil # 4.27 X10^3/uL (2.7-7.7); Neutrophil % 73.8 % (47-70); Platelet Count 224 K/mm3 (150-450); RBC Distribution Width CV 13.3 % (11.6-14.6); RBC Distribution Width SD 45.4 fl (35.1-43.9); Red Blood Count 4.53 M/mm3 (4.6-6.2); White Blood Count 5.8 K/mm3 (4.4-11.0)
--- NOTE | 2022-03-17 08:06 | CT_ITS ---
STUDY: CT ABDOMEN AND PELVIS WITH CONTRAST REASON FOR EXAM: Male, 61 years old. RECTAL CANCER. Status post colostomy and chemotherapy and radiation therapy. RADIATION DOSAGE (If Supplied By Facility): CTDIvol = ( 15 ) mGy, DLP = ( 1277.9 ) mGycm TECHNIQUE: Transaxial images were obtained from the dome of the diaphragm to the symphysis pubis without oral contrast. IV 100mL Isovue-300 was administered. Sagittal and coronal images were reconstructed. Individualized dose optimization techniques were used for this CT. COMPARISON: Comparison is made with prior study 09/16/2021. FINDINGS: The visualized lung bases are unremarkable. The visualized portions of the heart are within normal limits. There is decreased attenuation of the liver consistent with steatosis. Normal gallbladder and extrahepatic biliary system. Normal spleen. Normal pancreas. Normal bilateral adrenal glands. Normal right kidney. There is a 1.5 cm cyst in the anterior midportion of the left kidney. There is a small hiatal hernia. Normal small intestine. A colostomy is seen in the anterior left lower quadrant. The patient is status post abdominal perineal resection. Stable prominent soft tissues in the presacral space in keeping with the prior surgical intervention and radiation. The appendix is visualized and appears normal. There is diffuse atherosclerotic calcification of the abdominal aorta, without a demonstrated aneurysm. Normal inferior vena cava. Normal retroperitoneum. Normal urinary bladder. There is a small umbilical hernia containing fat. Moderate-sized left inguinal hernia containing fat. Small right inguinal hernia containing fat. There are diffuse degenerative changes of the visualized lumbar spine. CT/Abdomen/Pelvis W IV Cont ONLY IMPRESSION: Stable examination. Electronically Signed: Hugo Gan MD at 10:03 EDT ,
[2022-03-17 08:31] LABS: CREATININE FINGERSTICK 1.1 mg/dL (0.70-1.30); EGFR FINGERSTICK > 60.0000 mL/min (>60)
[2022-03-17 08:37] LABS: ALB/GLOB Ratio 0.9 RATIO (0.9-2.4); AST(SGOT) 23 U/L (15-37); Alanine Aminotransfer ALT/SGPT 26 U/L (16-61); Albumin, Serum 3.7 g/dL (3.2-5.0); Alkaline Phosphatase 99 U/L (45-117); Anion Gap 6 (5-15); BUN 17 mg/dL (7-18); BUN/Creat Ratio 18.2 RATIO (10-20); Calcium,Total 8.8 mg/dL (8.5-10.1); Chloride 107 mmol/L (98-107); Creatinine, Serum 0.94 mg/dL (0.70-1.30); EST Glomerular Filtration Rate 87 mL/min (>60); Est Glom Filt Rate - Afr Amer 105 mL/min (>60); Globulin 3.9 g/dL (2.2-4.2); Glucose 141 mg/dL (74-106); LDH 236 U/L (87-241); Protein, Total 7.6 g/dL (6.4-8.2); Sodium Level 138 mmol/L (136-145)
[2022-03-17 08:42] LABS: PSA,Total - Annual Screen 0.15 ng/mL (0.00-4.00)
[2022-03-18 16:31] LABS: Carcinoembryonic Antigen 0.8 ng/mL (0.0-4.7)
== END | disposition home or self-care (01) ==
LOC: CT 07:41
PROVIDERS: PCP Internal Medicine; Referring Provider Internal Medicine Medical Oncology; Visit Provider Internal Medicine Medical Oncology
DX: C20 Malignant neoplasm of rectum (principal); Z12.5 Encounter for screening for malignant neoplasm of prostate
CPT/HCPCS: 36415; 74177; 80053; 82378; 83615; 84153; 85025; Q9967; G0103

== ENCOUNTER → 2023-01-19 | Outpatient (CLI) | payer OTHER, SELFPAY ==
[2018-08-26 10:55] VITALS: BMI 32.5
[2023-01-19 12:36] LABS: AST(SGOT) 23 U/L (15-37); Alanine Aminotransfer ALT/SGPT 30 U/L (16-61); Albumin, Serum 3.8 g/dL (3.2-5.0); Alkaline Phosphatase 108 U/L (45-117); Anion Gap 7 (5-15); BUN 19 mg/dL (7-18); BUN/Creat Ratio 22.1 RATIO (10-20); Calcium,Total 9.4 mg/dL (8.5-10.1); Chloride 105 mmol/L (98-107); Cholesterol 174 mg/dL (200); Creatinine, Serum 0.86 mg/dL (0.70-1.30); EST Glomerular Filtration Rate 96 mL/min (>60); Est Glom Filt Rate - Afr Amer 116 mL/min (>60); Globulin 3.9 g/dL (2.2-4.2); Glucose 128 mg/dL (74-106); High Density Lipoprotein 41 mg/dL; Protein, Total 7.7 g/dL (6.4-8.2); Sodium Level 137 mmol/L (136-145); Triglycerides 86 mg/dL; Very Low Density Lipoprotein 17 mg/dL (5-40)
[2023-01-19 12:37] LABS: Absolute Lymphocyte Count 0.97 X10^3/uL (0.83-4.51); Absolute Neutrophil Count 4.1 X10^3/uL (2.0-7.7); Basophil# 0.03 X10^3/uL; Basophil% 0.5 % (0-1); Eosinophil# 0.08 X10^3/uL; Eosinophils% 1.4 % (0-5); Hematocrit 43.2 % (40-54); Hemoglobin 14.3 g/dL (13.0-16.5); Lymphocyte # 0.97 X10^3/ul (0.83-4.51); Lymphocyte % 16.8 % (19-41); Mean Corp Hgb Conc 33.1 g/dL (32-36); Mean Corpuscular Hgb 30.4 pg (27.0-32.0); Mean Corpuscular Volume 91.7 fL (80-94); Mean Platelet Vol. 9.8 fl (6.2-12.0); Monocyte# 0.51 X10^3/uL; Monocyte% 8.8 % (0-10); NRBC Flagged by Analyzer 0 % (0-5); Neutrophil # 4.12 X10^3/uL (2.7-7.7); Neutrophil % 71.3 % (47-70); Platelet Count 273 K/mm3 (150-450); RBC Distribution Width CV 13.3 % (11.6-14.6); RBC Distribution Width SD 44.9 fl (35.1-43.9); Red Blood Count 4.71 M/mm3 (4.6-6.2); White Blood Count 5.8 K/mm3 (4.4-11.0)
[2023-01-20 10:30] LABS: Hemoglobin A1c 5.8 % (3.8-5.6)
== END | disposition home or self-care (01) ==
LOC: BIMLAB 09:26
PROVIDERS: PCP Internal Medicine; Referring Provider Internal Medicine; Visit Provider Internal Medicine
DX: I10 Essential (primary) hypertension (principal); R73.9 Hyperglycemia, unspecified
CPT/HCPCS: 36415; 80053; 80061; 83036; 85025

== ENCOUNTER → 2023-03-16 | Outpatient (CLI) | payer OTHER, SELFPAY ==
[2018-08-26 10:55] VITALS: BMI 32.5
--- NOTE | 2023-03-16 06:31 | CT_ITS ---
ACR Level 3 findings have been noted. An addendum which confirms receipt of the report will follow. HISTORY: MONITOR RECTAL CA. TECHNIQUE: Helically acquired images were obtained of the abdomen and pelvis after the intravenous administration of 100 mL Isovue 370. Oral contrast also administered. A radiation dose optimization technique was used for this scan. 485 images. COMPARISON: 03/17/2022, 09/16/2021, 02/21/2020. FINDINGS: LOWER CHEST: 1.5 cm cavitary and spiculated right lower lobe nodule, previously 1.1 cm. Spiculated and noncalcified 1.7 cm right infrahilar nodule, previously 8 mm. 9 mm pleural-based and slightly cavitary left lower lobe nodule medially, previously 6 mm. BOWEL: Bowel including appendix nondilated. No focal pericolonic inflammatory change. Distal colectomy with left lower quadrant colostomy similar to prior. PERITONEUM: No pathologically enlarged lymph nodes or significant ascites. LIVER: No enhancing mass. Fatty infiltration. GALLBLADDER/BILIARY TREE: Gallbladder present. KIDNEYS: No hydronephrosis. Stable 1.4 cm left renal cyst. SPLEEN/PANCREAS/ADRENAL GLANDS: Homogeneous and nonenlarged. VESSELS: No abdominal aortic aneurysm. Mild atherosclerosis. PELVIC ORGANS: Unchanged appearance with presacral soft tissue thickening. ABDOMINAL WALL: Fat-containing umbilical and inguinal hernias. BONES: Degenerative changes. Stable 8 mm and 11 mm lucent lesions in the L2 vertebral body. CT/Abdomen/Pelvis W IV Cont ONLY IMPRESSION: Spiculated and cavitary pulmonary nodules measuring up to 1.5 cm in the right lower lobe, suspicious for metastases. Stable small lucent lesions in the L2 vertebral body, favor benign hemangiomas over metastases. No significant interval change in appearance of left lower quadrant colostomy and distal colectomy with presacral soft tissue thickening. Hepatic steatosis. Stable small left renal cyst. Electronically Signed: Betsey Snell MD at 9:35 EDT ,
[2023-03-16 07:21] LABS: Absolute Lymphocyte Count 1.13 X10^3/uL (0.83-4.51); Absolute Neutrophil Count 4.6 X10^3/uL (2.0-7.7); Basophil# 0.03 X10^3/uL; Basophil% 0.5 % (0-1); Eosinophil# 0.11 X10^3/uL; Eosinophils% 1.7 % (0-5); Hemoglobin 13.6 g/dL (13.0-16.5); Lymphocyte # 1.13 X10^3/ul (0.83-4.51); Lymphocyte % 17.4 % (19-41); Mean Corp Hgb Conc 33.2 g/dL (32-36); Mean Corpuscular Hgb 30.4 pg (27.0-32.0); Mean Corpuscular Volume 91.5 fL (80-94); Mean Platelet Vol. 9.8 fl (6.2-12.0); Monocyte# 0.61 X10^3/uL; Monocyte% 9.4 % (0-10); NRBC Flagged by Analyzer 0 % (0-5); Neutrophil % 70.7 % (47-70); Platelet Count 255 K/mm3 (150-450); RBC Distribution Width SD 46.7 fl (35.1-43.9); Red Blood Count 4.48 M/mm3 (4.6-6.2); White Blood Count 6.5 K/mm3 (4.4-11.0)
[2023-03-16 07:25] LABS: CREATININE FINGERSTICK < 0.9 mg/dL (0.70-1.30); EGFR FINGERSTICK > 60.0000 mL/min (>60)
[2023-03-16 07:47] LABS: AST(SGOT) 22 U/L (15-37); Alanine Aminotransfer ALT/SGPT 27 U/L (16-61); Albumin, Serum 3.7 g/dL (3.2-5.0); Alkaline Phosphatase 115 U/L (45-117); Anion Gap 6 (5-15); BUN 20 mg/dL (7-18); Calcium,Total 8.9 mg/dL (8.5-10.1); Chloride 108 mmol/L (98-107); Creatinine, Serum 0.87 mg/dL (0.70-1.30); EST Glomerular Filtration Rate 95 mL/min (>60); Est Glom Filt Rate - Afr Amer 115 mL/min (>60); Globulin 3.6 g/dL (2.2-4.2); Glucose 178 mg/dL (74-106); LDH 213 U/L (87-241); Potassium 3.7 mmol/L (3.5-5.1); Protein, Total 7.3 g/dL (6.4-8.2); Sodium Level 140 mmol/L (136-145)
== END | disposition home or self-care (01) ==
LOC: CT 06:22
PROVIDERS: PCP Internal Medicine; Referring Provider Internal Medicine Medical Oncology; Visit Provider Internal Medicine Medical Oncology
DX: Z85.048 Personal history of other malignant neoplasm of rectum, rectosigmoid junction, and anus (principal)
CPT/HCPCS: 36415; 74177; 80053; 82378; 83615; 85025; Q9967

== ENCOUNTER → 2023-04-02 | Outpatient (CLI) | payer OTHER, SELFPAY ==
[2018-08-26 10:55] VITALS: BMI 32.5
--- NOTE | 2023-04-02 08:04 | CT_ITS ---
INDICATION: Rectal ca, cavitary lung lesion EXAMINATION: CT CHEST WITH CONTRAST - CT Chest W/ Contrast Injection TECHNIQUE: Helically acquired images were obtained of the chest following IV contrast. A radiation dose optimization technique was used for this scan. IV Contrast dosage and agent: 85 mL Isovue-300 COMPARISON: 05/30/2019 FINDINGS: LUNGS, PLEURA AND LARGE AIRWAYS: 7 mm right lung apex nodule. Dominant 1.7 x 1.6 x 1.3 cm right lower lobe nodule with cavitation and spiculation. 1.8 x 1.2 x 1.4 cm medial right lower lobe nodule. 1.3 x 1.3 x 1.3 cm anterior left upper lobe nodule with spiculation and pleural tethering. 1 x 0.7 cm medial left lower lobe subpleural nodule. No consolidation or edema. No pleural effusion or thickening. No pneumothorax. THYROID: No thyroid lesions. HEART AND PERICARDIUM: Heart size is normal. No pericardial effusion. VESSELS: Thoracic aorta is not dilated. No aortic dissection. No obvious central pulmonary embolism although this study was not performed with the pulmonary embolism protocol. MEDIASTINUM AND MAICOL: 2.2 x 1.4 cm AP window lymph node. Esophagus is unremarkable. No hiatal hernia. UPPER ABDOMEN: Mild splenomegaly. BONES: No suspicious lytic or blastic abnormality. CT/Chest WITH Contrast IMPRESSION: Bilateral lung nodules and AP window enlarged lymph node are suspicious for metastases given known rectal cancer. Electronically Signed: William Tiwari MD at 18:32 EDT ,
--- NOTE | 2023-04-02 08:04 | EKG12_ITS ---
Test Reason : HYPERTENSION Blood Pressure : / mmHG Vent. Rate : 052 BPM Atrial Rate : 052 BPM P-R Int : 156 ms QRS Dur : 094 ms QT Int : 420 ms P-R-T Axes : 061 013 024 degrees QTc Int : 390 ms Sinus bradycardia Otherwise normal ECG Confirmed by ROBYN PALMA, FIDEL ([id number]), editor sound LEONID EGAN ([id number]) on 04/03/2023 9:25:33 AM Referred By: Fernanda Perez Confirmed By:FIDEL CARLSON MD
== END | disposition home or self-care (01) ==
LOC: CT 07:59
PROVIDERS: PCP Internal Medicine; Referring Provider Internal Medicine; Visit Provider Internal Medicine
DX: J98.4 Other disorders of lung (principal); C20 Malignant neoplasm of rectum; I10 Essential (primary) hypertension
CPT/HCPCS: 71260; 93005; Q9967

== ENCOUNTER → 2023-04-20 | Outpatient (CLI) | payer OTHER, SELFPAY ==
[2018-08-26 10:55] VITALS: BMI 32.5
[2023-04-20 14:13] LABS: Hemoglobin A1c 5.9 % (3.8-5.6)
== END | disposition home or self-care (01) ==
LOC: BIMLAB 09:20
PROVIDERS: PCP Internal Medicine; Visit Provider Internal Medicine
DX: R73.03 Prediabetes (principal)
CPT/HCPCS: 36415; 83036

== ENCOUNTER 2023-08-14 06:47 | Day surgery (SDC) | payer OTHER, SELFPAY ==
[2018-08-26 10:55] VITALS: BMI 32.5
[2023-08-14] MEDS: Lactated Ringers 1,000 ML 15 ML IV (07:31)
[2023-08-14 07:32] VITALS: BP 141/73; PULSE 81; RESP 17; TEMP 37.1; O2SAT 97; BMI 33.4
--- NOTE | 2023-08-14 09:32 | HP.PCM_ITS ---
History and Physical Date of Admission: 08/14/23 Intake Vital Signs 07/23/2309:26 07/29/2309:17 Height 6 ft 2 in 6 ft 2 in Weight: 267 lb 9 oz 264 lb 8.875 oz BMI 34.3 34.0 BP 142/76 H 148/74 H Blood Pressure Location Lt brachial Rt brachial Position Sitting Sitting Respiration 16 16 Pulse 52 L Pulse Source Monitor Temp 98.3 F Pulse Oximetry (%) 97 96 Oxygen Delivery Method room air room air Intake Visit Reasons: PORT PLACEMENT Chief Complaint: FU Rectal cancer and new lung nodules. Allergies No Known Allergies Allergy (Verified 07/23/23 09:31) [facility] Medical History Arthritis Borderline type 2 diabetes mellitus Chemotherapy management, encounter for Colostomy in place Encounter for examination required by Department of Transportation (DOT) GERD (gastroesophageal reflux disease) Hematochezia History of neuropathy History of skin cancer Keratosis Obesity (BMI 30-39.9) Osteoarthritis Pruritus Rectal cancer rectal tumor removed Subcutaneous mass Tumors Venous insufficiency of both lower extremities Surgical History h/o left total knee replacement History of colonoscopy History of endoscopy History of removal of Port-a-Cath History of resection of rectum Hx of tooth extraction Family History Father Heart diseaseMother Heart disease Colon polyps Anemia Lupus Myocardial infarction Skin cancerBrother Heart disease Heart stents placed High cholesterolGrandfather Parkinson disease Social History Smoking Status: Never smoker second hand exposure: No alcohol intake: never substance use type: does not use caffeine: No what type of physical activity do you participate in: walking HPI HPI HPI: Patient is a 63-year-old male with metastatic disease that requires port. The patient has had right chest port in the past which was removed and now he needs replacement for new treatment. ROS General General: Yes colon cancer; No weight change, appetite, fatigue, breast cancer or weakness HEENT HEENT: No difficulty swallowing, eye injury, eye surgery, swollen glands or hoarseness Endo Endocrine: No thyroid disease, diabetes mellitus, thyroid cancer, Hair loss, heat intolerance or cold intolerance Skin Skin: No rash or changing moles Breast Breast: No left breast lump, right breast lump, nipple discharge, breast pain, abnormal mammogram, abnormal US or breast enlargement Musc Musculoskeletal: No back problems, arthritis, rheumatoid arthritis, gout or joint pain Cardio Cardiovascular: Yes high blood pressure; No murmur, pacemaker, heart disease, atrial fibrillation, heart attack, heart stent, palpitations, shortness of breat with exertion or chest pain Psych Psychiatric: No depression, anxiety or hearing voices Resp Respiratory: No shortness of breath, No sleep apnea, No cough, No COPD, No asthma, No emphysema and No wheezing Gastro Gastrointestinal: No abdominal pain, No nausea or vomiting, No diarrhea, No constipation, No blood in stool, No acid reflux, No hemorrhoids, No ulcers, No gallbladder problem and No black,tarry stools Chris Hematologic: No blood thinners, No blood disorders, No bleeding, No anemia and No blood clots Neuro Neurologic: No system reviewed and no additional complaints, except as documented, No as per HPI, No abnormal gait, No abnormal hearing, No abnormal movements, No abnormal speech, No behavioral changes, No burning sensations, No confusion, No convulsions, No disequilibrium, No dizziness, No localized weakness, No frequent falls, No headache(s), No lack of coordination, No loss of vision, No memory loss, No numbness, No other visual disturbances, No radicular pain, No restless legs, No sensory deficit, No syncope, No tingling, No tremor(s), No weakness and No other Exam Const General: cooperative Orientation: alert and oriented x3 HENMT Head: normal to inspection Neck Neck: normal visual inspection and full ROM Chest Chest palpation & inspection: normal inspection of the chest Resp Effort & Inspection: normal respiratory effort Auscultation: clear to auscultation bilaterally Cardio Rate: regular rate Rhythm: regular rhythm GI Inspection: non-distended Palpation: soft and nontender Skin General: no rashes or lesions noted Neuro General: patient alert and patient oriented x3 Extrem General: full ROM Psych Appearance: grossly normal Mental Status: mental status grossly normal Assessment and Plan Assessment and Plan (1) Metastatic cancer to lung: Status: Acute Qualifiers: Laterality: bilateral Qualified Code(s): C78.01 - Secondary malignant neoplasm of right lung; C78.02 - Secondary malignant neoplasm of left lung Comment: KRAS mutation negative. Discussed therapy with chemotherapy and Monoclonal antibodies, infusion chemotherapy with Pump, Pt does not want the pump. Suggested therapy with Irinotecan and Panitumumab, he accepted. Discussed risks, benefits and side effects. (2) Encounter for adjustment or management of vascular access device: Status: Acute Plan The patient has metastatic disease and requires a replacement of the right chest port. I discussed placement of right chest port with the patient in detail. I also discussed the possibility of having to place left if I am unable to access the vein on the right. I also discussed the risks including but not limited to bleeding, infection, pneumothorax. Patient understands the risks and he is willing to proceed. Reinier Ledbetter MD Pager: [facility] [address] [place] [address], [address] [place] [address] Office: I have examined the patient and the H&P has been reviewed. There are no clinical changes since date of exam.
[2023-08-14] MEDS: Cefazolin 2 GM in 0.9% Normal Saline (100mL Bag) 100 ML IV (09:58)
[2023-08-14] MEDS: Lidocaine 1% (20 ml mdv) 20 ML Vial (10:05)
[2023-08-14] MEDS: Bupivacaine 0.25% 30 ML Vial (10:05)
[2023-08-14 10:35] VITALS: BP 133/83; BP 141/73; PULSE 71; RESP 16; TEMP 36.4; O2SAT 94
[2023-08-14 10:40] VITALS: BP 126/89; BP 141/73; PULSE 75; RESP 16; O2SAT 97
[2023-08-14 10:45] VITALS: BP 130/75; BP 141/73; PULSE 71; RESP 16; O2SAT 98
--- NOTE | 2023-08-14 10:50 | RAD_ITS ---
STUDY: X-RAY CHEST REASON FOR EXAM: Male, 63 years old. Line placement -- in pacu TECHNIQUE: Single AP portable view of the chest. COMPARISON: None. FINDINGS: A right-sided Port-A-Cath has been placed. The tip is at the junction of the superior vena cava and right atrium. The lungs are clear and expanded. There is no demonstrated pleural abnormality. Normal size heart. Normal mediastinum and sandy. Normal visualized pulmonary arteries. Normal visualized aortic arch and descending thoracic aorta. There are degenerative changes of the visualized thoracic spine. Normal visualized ribs, clavicles, and shoulders. There is no demonstrated abnormality of the visualized soft tissue structures of the upper abdomen. RAD/CXR for Line Placement IMPRESSION: The tip of the right hermelindo catheter is at the junction of the superior vena cava and right atrium. The lungs are clear. Electronically Signed: Hugo Gan MD at 11:20 EDT ,
--- NOTE | 2023-08-14 10:51 | OP.PCM_ITS ---
Report of Operation Date of Procedure: 08/14/23 Pre-Operative Diagnosis: Need for vascular access for chemotherapy Post-Operative Diagnosis: Same Surgery/Procedure Performed:: Ultrasound and fluoroscopy guided right chest port placement utilizing right IJ Type of Anesthesia: Local MAC Estimated Blood Loss (mL): 10 Description of Procedure: After obtaining informed consent patient was brought back to the operating room MAC anesthesia was induced and the right chest and neck were prepped in normal sterile fashion. Ultrasound was used to evaluate both IJs and the right IJ was selected. Next, using a needle, the right IJ was accessed and a guidewire was passed on into the superior vena cava under fluoroscopy guidance. A small incision was made over the puncture site and the dilator introducer was placed over the guidewire. Next this was capped and the pocket was made for the port. 1% lidocaine with epinephrine was injected in the proposed port site. An incision was made with scalpel. Electrocautery was used to make a pocket under the skin and subcutaneous tissue. Hemostasis was obtained. Next, the catheter was tunneled up to the neck incision site and placed through the introducer. The peel-away introducer was removed and the position of the catheter was confirmed on fluoroscopy. Next, the catheter was trimmed and attached to the port with the locking device. Interrupted 2-0 Vicryl sutures were used to anchor the port to the chest wall and then the port was placed inside the pocket. The pocket was then flushed with saline and the port irrigated with saline. There was good blood return and the port flushed easily. Next, heparin was injected into the port. The skin was closed with subcutaneous interrupted 3-0 Vicryl sutures. A single 3-0 Vicryl sutures placed under the skin at the neck incision site. Steri-Strips were placed as well as op sites. Patient tolerated procedure well, was taken to PACU in stable condition. Chest x-ray will be obtained. Grafts/Implants Used: 8 [employer] PowerPort Admit VTE Documentation VTE Mechan Device Prophylaxis: SCD's
[2023-08-14 10:52] VITALS: BP 128/77; BP 141/73; PULSE 70; RESP 16; TEMP 36.2; O2SAT 97
--- NOTE | 2023-08-14 10:52 | DCINST_ITS ---
Discharge Instructions Procedure Port-A-Cath Diet Discharge Diet: Light diet - advance as tolerated (Pain medication may cause nausea. You should typically eat light foods as you take your pain medication.) Activity Discharge Activity: Return to Normal Activity and May Shower (with your bandage in place in 1-2 days after surgery. DO NOT SHOWER WHEN YOUR PORT IS ACCESSED.) Dressing / Incision Call your doctor if your incision/area has: Continuous Slow Oozing, Sudden Increased Bleeding, Increased Pain/ Swelling, Increased Redness and Foul Smelling Discharge Call your doctor if you observe: Fever of 101 or Higher Remove Dressing in: 2 days Cleanse incision/area with: Soap & Water Follow Up Care Please Follow Up With: Reinier Ledbetter MD When: as needed [phone] Test Results: Test results from this visit will be discussed in further detail at your follow- up appointment, if applicable. Discharge Plan Admission Attending Provider: Reinier Ledbetter Primary Care Provider: Fernanda Perez Instructions Additional Instructions / Restrictions: Alternate ibuprofen and Tylenol for pain Discharge Orders/Prescriptions Prescriptions: No Action amlodipine 5 mg tablet 7.5 mg PO DAILY 90 Days Qty: 135 0RF omeprazole 20 mg capsule,delayed release(DR/EC) 20 mg PO DAILY Qty: 90 3RF Referrals / Follow Up: Fernanda Perez MD [Primary Care Provider] - Disposition Disposition (needs filled in before D/C Order can be placed): Home, Self Care
[2023-08-14 11:25] VITALS: BP 141/73
== END 2023-08-14 11:33 | disposition home or self-care (01) ==
LOC: SDC 06:48 → AC 06:50
PROVIDERS: PCP Internal Medicine; Visit Provider Surgery
PROC: (CPT 36561; principal; 2023-08-14 09:50)
DX: Z45.2 Encounter for adjustment and management of vascular access device (principal); C78.02 Secondary malignant neoplasm of left lung; C78.01 Secondary malignant neoplasm of right lung; C20 Malignant neoplasm of rectum; E66.9 Obesity, unspecified; I10 Essential (primary) hypertension; K21.9 Gastro-esophageal reflux disease without esophagitis; Z79.899 Other long term (current) drug therapy; Z68.33 Body mass index [BMI] 33.0-33.9, adult
CPT/HCPCS: 36561; 71045; 77001; J7120; C1788; J2405

== ENCOUNTER → 2023-10-02 | Outpatient (CLI) | payer OTHER, SELFPAY ==
[2018-08-26 10:55] VITALS: BMI 32.5
--- NOTE | 2023-10-02 07:50 | CT_ITS ---
STUDY: CT CHEST, ABDOMEN T PELVIS WITH CONTRAST REASON FOR EXAM: Male, 63 years old. IV contrast only, metastatic rectal cancer RADIATION DOSAGE (If Supplied By Facility): CTDIvol = ( 22.03 ) mGy, DLP = ( 2058.38 ) mGycm TECHNIQUE: Transaxial imaging was performed following intravenous administration of IV 100mL Isovue-300. Individualized dose optimization techniques were used for this CT. COMPARISON: April 21, 2023 FINDINGS: CHEST The lungs are well expanded. There is a 7 mm right upper lobe nodule, image 17 series 6. There is a 1.2 cm left upper lobe nodule, image 56 series 6. There is a 1.6 cm cavitary nodule in the right lower lobe, image 66 series 6. These are relatively stable since the previous study. Normal heart and pericardium. Normal mediastinum. Normal hilar regions. Normal unenhanced pulmonary arteries. Normal aorta arch and descending thoracic aorta. Normal osseous structures. ABDOMEN Normal liver. Normal gallbladder and extrahepatic biliary system. Normal spleen. Normal pancreas. Normal bilateral adrenal glands. Normal right kidney. Cysts in the left kidney. Normal visualized stomach. Normal small intestine. Prior surgery of the colon. The appendix is visualized and appears normal. Normal abdominal aorta. Normal inferior vena cava. Mild adenopathy in the retroperitoneum. There is a colostomy to the left anterior abdominal wall. Fatty umbilical hernia. Degenerative vertebral changes. PELVIS Normal urinary bladder. There is soft tissue density in the presacral space. There is no pelvic fluid. There is no pelvic lymphadenopathy or mass lesion. Fatty density in the inguinal canals. Left inguinal hernia partially containing the urinary bladder wall and in both small bowel. Normal visualized pelvic arteries. CT/CT Chest, Abd, Pel w/Contrast IMPRESSION: Relatively stable pulmonary nodular densities since the previous study. Left renal cysts. Mild retroperitoneal adenopathy with slight interval enlargement of the nodes. Left inguinal hernia as noted. Relatively stable soft tissue density in the presacral space. Electronically Signed: Bhavesh Barker DO at 17:37 EST ,
== END | disposition home or self-care (01) ==
LOC: CT 07:38
PROVIDERS: PCP Internal Medicine; Referring Provider Internal Medicine Medical Oncology; Visit Provider Internal Medicine Medical Oncology
DX: Z85.048 Personal history of other malignant neoplasm of rectum, rectosigmoid junction, and anus (principal)
CPT/HCPCS: 71260; 74177; Q9967

== ENCOUNTER → 2024-01-07 | Outpatient (CLI) | payer OTHER, SELFPAY ==
[2018-08-26 10:55] VITALS: BMI 32.5
--- NOTE | 2024-01-07 07:15 | CT_ITS ---
EXAM: CT CHEST, ABDOMEN AND PELVIS WITH INTRAVENOUS CONTRAST CLINICAL INDICATION: assess treatment response TECHNIQUE: Helically acquired images were obtained of the chest, abdomen and pelvis with intravenous contrast. This CT exam was performed using one or more of the following dose reduction techniques: automated exposure control, adjustment of the mA and/or kV according to patient size, and/or use of iterative reconstruction technique. CONTRAST: Oral and IV Readi-CAT and 100mL Isovue-300 COMPARISON: CT Chest Abdomen Pelvis dated 10/02/2023 FINDINGS: CHEST: LUNGS AND PLEURAL SPACES: Stable 7 mm right apical pulmonary nodule. Stable 13 mm left upper lobe pulmonary nodule. 14 mm right lower lobe pulmonary nodule. No pleural effusion or thickening. No pneumothorax. HEART: Normal. Heart size is normal. No pericardial effusion. MEDIASTINUM: Small mediastinal and hilar lymph nodes appear less prominent on the current exam. Esophagus is unremarkable. No hiatal hernia. THYROID: Normal. No thyroid nodules or calcification. ABDOMEN: LIVER: Normal. Homogeneous. No focal mass. GALLBLADDER AND BILE DUCTS: Gallbladder is contracted consistent with a nonfasting state. PANCREAS: Normal. No focal cystic or solid mass. SPLEEN: Normal. Normal size without focal cystic or solid mass. ADRENALS: Normal. No nodules. KIDNEYS AND URETERS: Normal. Normal renal size and position. No hydronephrosis. STOMACH AND BOWEL: Surgical changes of distal colon resection with left upper quadrant colostomy again seen. PELVIS: APPENDIX: Appendix is visualized and normal in appearance. BLADDER: Normal. REPRODUCTIVE: Unremarkable as visualized. No mass. CHEST, ABDOMEN and PELVIS: INTRAPERITONEAL SPACE: Normal. No ascites or other fluid collection. No free air. BONES/JOINTS: No suspicious lytic or blastic abnormality. SOFT TISSUES: Stable fat-containing 4.8 cm umbilical hernia. Presacral soft tissue thickening is unchanged related to prior therapy. Stable bilateral inguinal hernias noted with the left hernia again noted to contain a portion of the urinary bladder. VASCULATURE: Normal. Aorta is non-dilated. No aortic dissection. No obvious central pulmonary embolism although this study was not performed with the pulmonary embolism protocol. LYMPH NODES: Stable minimally enlarged retroperitoneal lymph nodes. CT/CT Chest, Abd, Pel w/Contrast IMPRESSION: 1. Stable bilateral pulmonary nodules. 2. No evidence of intra-abdominal or pelvic metastasis. Electronically Signed: Ezio Terrazas MD at 15:27 EST ,
--- OUTSIDE RECORDS SUMMARY | 2024-01-07 07:20 | XMS RPT_ITS | CCD ---
Author Name Unknown Address [address] [facility] [address] [place] [id number] Organization [facility] Care Team Providers Care Head Of Mathematics Name Role Phone [facility] RUTH/Shaheen MULLEN Primary Care Provider Ivet Kumar RN Unavailable Unavailable [facility] Referring Unavailable AL BUTLER Attending Unavailable [facility] [place] Primary Care Unavailable [facility] Primary Care Unavailable CLOYECHRISTIANO Awad Attending Unavailable CHRISTIANO FREGOSO Referring Unavailable [facility] [place] Primary Care Unavailable CHRISTIANO FREGOSO Attending Unavailable CHRISTIANO FREGOSO Referring Unavailable [facility] [place] Primary Care Unavailable [facility] [place] Referring Unavailable AL BUTLER Attending Unavailable [facility] [place] Primary Care Unavailable [facility] [place] Referring Unavailable AL BUTLER Attending Unavailable [facility] [place] Primary Care Unavailable [facility] [place] Primary Care Unavailable DESIREE AVILA Attending Unavailable SELF, SELF Referring Unavailable Medications Current Medications Medication Drug Class(es) Dates Sig (Normalized) Sig (Original) amLODIPine 10 mg oral tablet (4 sources) Dihydropyridine Calcium Channel Xu take 7.5 mg by mouth once daily amLODIPine 10 MG tablet Take 7.5 mg by mouth daily. 0 Active omeprazole 10 mg delayed release oral capsule (4 sources) Proton Pump Inhibitor take 1 capsule by mouth once daily omeprazole [address] Take 1 capsule by mouth daily. 0 Active Completed/Discontinued Medications Medication Drug Class(es) Dates Sig (Normalized) Sig (Original) acetaminophen 325 mg oral tablet (2 sources) Start: 06-03-2023 End: 06-03-2023 Acetaminophen (TYLENOL) tablet 650 mg Problems Active Problems Problem Classification Problem Date Documented Da te Episodic/Chronic Cancer of rectum and anus (11 sources) Malignant tumor of rectum; Translations: [Malignant neoplasm of rectum] Onset: 10-27-2018 10-29-2018 Chronic Cancer of rectum and anus (5 sources) History of malignant neoplasm of rectum; Translations: [Personal history of other malignant neoplasm of rectum, rectosigmoid junction, and anus] Onset: 06-03-2023 05-18-2023 Episodic Lymphadenitis (1 source) Mediastinal lymphadenopathy; Translations: [Localized enlarged lymph nodes] 05-18-2023 Episodic Other lower respiratory disease (3 sources) Nodule of lung; Translations: [Solitary pulmonary nodule] 05-18-2023 Episodic Other lower respiratory disease (2 sources) Cavitation of lung; Translations: [Other disorders of lung] 05-18-2023 Episodic Other lower respiratory disease (2 sources) Other disorders of lung; Translations: [Other disorders of lung] Onset: 06-03-2023 Episodic Other lower respiratory disease (2 sources) Solitary pulmonary nodule; Translations: [Solitary pulmonary nodule] Onset: 06-03-2023 Episodic Other nutritional; endocrine; and metabolic disorders (4 sources) Obese class I; Translations: [Obesity, unspecified] Onset: 09-07-2018 09-07-2018 Chronic Past or Other Problems Problem Classification Problem Date Documented Da te Episodic/Chronic Mood disorders (4 sources) Mood disorders Onset: 05-18-2023 Resolved: 06-15-2023 05-18-2023 Results Test Name Value Interpretation Reference Range Facil ity Vital Signs Date Time Vital Sign Value Performing Clinician Nikki back 06-15-2023 10:41-0400 Body height 189.2 cm Yarsanism Luke [facility] Work Phone: [facility] 06-15-2023 10:41-0400 Body mass index (BMI) [Ratio] 33.17 kg/m2 Al Butler [facility] Work Phone: [facility] 06-15-2023 10:41-0400 Body temperature 98.71 [degF] Al Butler [facility] Work Phone: [facility] 06-15-2023 10:41-0400 Body weight 118.75 kg Al Butler [facility] Work Phone: [facility] 06-15-2023 10:41-0400 Diastolic blood pressure 72 mm[Hg] Al Butler [facility] Work Phone: [facility] 06-15-2023 10:41-0400 Heart rate 66 /min Al Butler [facility] Work Phone: [facility] 06-15-2023 10:41-0400 Respiratory rate 18 /min Al Hoods [facility] Work Phone: [facility] 06-15-2023 10:41-0400 SaO2% (BldA) [Mass fraction] 95 % Al Butler [facility] Work Phone: [facility] 06-15-2023 10:41-0400 Systolic blood pressure 153 mm[Hg] Al Butler [facility] Work Phone: [facility] 06-03-2023 12:32-0400 Diastolic blood pressure 75 mm[Hg] Christiano Cloyes RIDDLER OPERATOR-PURCHASING EXPEDITOR Work Phone: [facility] 06-03-2023 12:32-0400 Heart rate 56 /min Christiano Cloyes RIDDLER OPERATOR-PURCHASING EXPEDITOR Work Phone: [facility] 06-03-2023 12:32-0400 Respiratory rate 21 /min Christiano Cloyes RIDDLER OPERATOR-PURCHASING EXPEDITOR Work Phone: [facility] 06-03-2023 12:32-0400 SaO2% (BldA) [Mass fraction] 100 % Christiano Cloyes RIDDLER OPERATOR-PURCHASING EXPEDITOR Work Phone: [facility] 06-03-2023 12:32-0400 Systolic blood pressure 128 mm[Hg] Christiano Cloyes RIDDLER OPERATOR-PURCHASING EXPEDITOR Work Phone: [facility] 06-03-2023 11:56-0400 Body temperature 97.11 [degF] Christiano Cloyes RIDDLER OPERATOR-PURCHASING EXPEDITOR Work Phone: [facility] 06-03-2023 08:41-0400 Body height 189.2 cm Christiano Fregoso RIDDLER OPERATOR-PURCHASING EXPEDITOR Work Phone: [facility] 06-03-2023 08:41-0400 Body mass index (BMI) [Ratio] 34.54 kg/m2 Christiano Fregoso RIDDLER OPERATOR-PURCHASING EXPEDITOR Work Phone: [facility] 06-03-2023 08:41-0400 Body weight 123.65 kg Christiano Fregoso RIDDLER OPERATOR-PURCHASING EXPEDITOR Work Phone: [facility] 05-18-2023 10:01-0400 Body height 189.2 cm Al Butler [facility] Work Phone: [facility] 05-18-2023 10:01-0400 Body mass index (BMI) [Ratio] 34.53 kg/m2 Al Butler [facility] Work Phone: [facility] 05-18-2023 10:01-0400 Body temperature 97.81 [degF] Al Butler [facility] Work Phone: [facility] 05-18-2023 10:01-0400 Body weight 123.65 kg Al Butler [facility] Work Phone: [facility] 05-18-2023 10:01-0400 Diastolic blood pressure 74 mm[Hg] Al Butler [facility] Work Phone: [facility] Encounters Encounter Date Encounter Type Care Provider Facility Start: 07-08-2023 ambulatory [facility] Facility:Lance BHANDARI Start: 06-15-2023 ambulatory [facility] Facility:Lance BHANDARI Start: 06-15-2023 End: 06-15-2023 Office outpatient visit 40 minutes Al Butler [facility] Work Phone: Division of Pulmonary Diseases at [facility] Plan of Treatment Date Care Activity Detail Author Start: 07-10-2023 Influenza vaccination INFLUENZA VACCINE (#1) [facility] Start: 06-15-2023 End: 06-15-2023 Patient encounter procedure 06/15/2023 11:00 AM EDT Office Visit Division of Pulmonary Diseases at [facility] [address] [place] [address] Al Butler, [facility] [address] [place] [phone] Division of Pulmonary Diseases at [facility] Start: 06-10-2023 End: 06-10-2023 Patient encounter procedure 06/10/2023 9:15 AM EDT Appointment [facility] [address] [place] [phone] Al Butler [facility] [address] [place], [place] [address] [address] [place] [phone] [facility] Start: 06-03-2023 End: 06-03-2023 Patient encounter procedure 06/03/2023 10:00 AM EDT Appointment [facility] [address] [place] [phone] Al Butler, [facility] [address] [place] [address] [place] [phone] [facility] Start: 06-02-2023 End: 06-02-2023 Patient encounter procedure 06/02/2023 10:45 AM EDT Appointment [facility] [address] [place] [address], [place] [phone] Christiano Fregoso, RIDDLER OPERATOR-PURCHASING EXPEDITOR [address] [place], [place] [id number] [facility] Start: 05-18-2023 End: 05-18-2024 CT Chest WO contrast CT CHEST WITHOUT CONTRAST Imaging STAT Lung nodule Expected: 05/18/2023, Expires: 05/18/2024 [facility] Payers Date Payer Category Payer Private Health Insurance YEHUDA POON [id number] 2022-Present [address] [place] [address] [id number] 2022 Private Health Insurance [id number] 2018 Unknown [facility] [id number] 2018-Present [address] [address] [place] [address] [id number] 2018 Unknown [id number] 1960 Unknown [id number] 1961 Unknown [id number] 1961 Unknown [id number] 1961 Unknown [id number] 1961 Unknown [id number] 1961 Unknown [id number] 1961 Unknown [id number] Social History Date Type Detail Facility Start: 09-06-2018 End: 06-15-2023 Tobacco smoking status NHIS Never smoked tobacco [facility] Start: 09-06-2018 End: 06-15-2023 Tobacco use and exposure Smokeless tobacco non-user [facility] Start: 05-18-2023 End: 06-15-2023 Alcohol intake Current drinker of alcohol (finding) [facility] Start: 05-18-2023 End: 06-15-2023 History of Social function [facility] Start: 05-18-2023 End: 06-15-2023 Tobacco use panel [facility] Adolescent depressio n screening assessment 0 [facility] Start: 09-06-2018 Alcohol Comment occasionally [facility] Start: 1960 Sex Assigned At Not on file [facility] Start: 08-30-2018 Gender identity Identifies as male gender (finding) [facility] Clinical Notes 05-18-2023 to 06-15-2023 Al Butler [facility] - 06/15/2023 11:00 AM EDTNursing Notes - Alexandra Blackmon [facility] 06/03/2023 11:06 AM EDTNursing Notes - Alexandra Blackmon [facility] 06/03/2023 11:06 AM EDTPatient Instructions Note Date & Type Note Facility 06-15-2023 History of Present illness Narrative Interventional Pulmonology Clinic Note Referring provider: Dr. Raymond SUBJECTIVE: Chief Complaint: Chief Complaint Patient presents with Follow-up HPI: We had the pleasure of seeing Trever Arizmendi is a 63 y.o. male in the Interventional Pulmonary clinic for evaluation of lymphadenopathy seen on imaging Mr. Trever Arizmendi is a 63 y.o. years old male never smoker with rectal ca treated with surgery in 2019 with pre-op radiation & post-op chemo coming to the interventional pulmonary clinic for bilateral nodules & lymph nodes. On 05/30 he underwent a bronchoscopy with LNs biopsy that turned positive for adenocarcinoma. He is here to discuss the results He had sore throat after the procedure for a couple of datys that now resolved Past Medical History He has a past medical history of Actinic keratoses (2011), Arthritis, Dermatofibroma (2011), Epidermal cyst (2011), GERD (gastroesophageal reflux disease), Inguinal hernia (2011), Rectal bleeding (2017), Rectal cancer (2017), Skin cancer (2011), Skin erosion (2012), Solar lentigo (2012), and Umbilical hernia (2012). There is no immunization history on file for this patient. Past Social History Social History Socioeconomic History Marital status: Spouse name: Not on file Number of children: Not on file Years of education: Not on file Highest education level: Not on file Occupational History Not on file Tobacco Use Smoking status: Never Smokeless tobacco: Never Vaping Use Vaping Use: Never used Substance and Sexual Activity Alcohol use: Yes Comment: occasionally Drug use: No Sexual activity: Not on file Other Topics Concern Not on file Social History Narrative Not on file Social Determinants of Health Financial Resource Strain: Not on file Food Insecurity: Not on file Transportation Needs: Not on file Physical Activity: Not on file Stress: Not on file Social Connections: Not on file Intimate Partner Violence: Not on file Housing Stability: Not on file Past Family History family history includes Colorectal Polyps in his mother; Diabetes in his mother; Heart Disease - Other in his brother, father, and mother; Other - Specify in his mother. Past Surgical History has a past surgical history that includes colonoscopy diagnostic (08/10/2018); egd w/ bx (08/10/2018); and proctectomy complete abdominoperineal approach robotic (N/A, 12/27/2018). Allergies He has No Known Allergies. Medications has a current medication list which includes the following prescription(s): amlodipine and omeprazole. Review of Systems Constitutional: Denies fevers/chills, night sweats Ear, nose, throat: Denies sore throat, rhinorrhea Eyes: Denies vision changes CV: Denies chest pain, palpitations Pulm: Denies shortness of breath, no cough Hem: No history of abnormal bleeding or excess bleeding after a procedure GI: Denies abdominal pain, nausea/vomiting, diarrhea, constipation, BRBPR : Denies dysuria MSK: Negative Neuro: No numbness/tingling, weakness Skin: No rash OBJECTIVE: Physical Exam BP 153/72 (BP Location: Left arm, BP Position: Sitting) Pulse 66 Temp 98.7 F (37.1 C) (Oral) Resp 18 Ht 1.892 m (6' 2.49 ) Wt 118.8 kg (261 lb 12.8 oz) SpO2 95% BMI 33.17 kg/m Smoking Status Never Body mass index is 33.17 kg/m . General appearance: Alert, well appearing Eyes: PERRL, anicteric HENT: moist mucous membrance Respiratory: CTAB without r/r/w CV: RR Abdomen: soft, non-tender, non-distended Extremities: CGExamLE: No LE edema Neurological: Alert Diagnostic Review I have personally reviewed the imaging and labs in the chart Cytology 06/03/23 A. 10L LYMPH NODE, FNA (CYTOLOGY AND CELL BLOCK): FINAL DIAGNOSIS: Metastatic Adenocarcinoma, Morphologically Similar To Part B Immediate Study: Adequacy/Preliminary Diagnosis: Adequate Rachael Rondon, CT (ASCP), June 03, 2023 B. STATION 7 LYMPH NODE, FNA (CYTOLOGY AND CELL BLOCK): FINAL DIAGNOSIS: Metastatic Adenocarcinoma, See Note Note: Immunohistochemical studies are performed on the cell block. The malignant cells are positive for CK20 and CDX2, and are negative for CK7 and TTF-1. These findings most likely represent a metastasis of known rectal origin however, other primary sites such as lung cannot be entirely excluded since they may share a similar immunoprofile. Correlation with other findings is suggested. All controls show appropriate reactivity. All immunohistochemistry, in situ hybridization, and histochemical tests were developed by and are performed at the [facility], [address] [place] [address], [address], [place] [address]. All tests reported here, except those addressing HER2 overexpression as a predictive marker, have not been cleared by or approved by the [place] Food and Drug Administration (FDA). The laboratory is regulated under CLIA as qualified to perform high-complexity testing. The tests are used for clinical purposes. They should not be regarded as investigational or for research. Immediate Study: Adequacy/Preliminary Diagnosis: Adequate Rachael Rondon CT (ASCP), June 03, 2023 C. 11R LYMPH NODE, FNA (CYTOLOGY AND CELL BLOCK): FINAL DIAGNOSIS: Metastatic Adenocarcinoma, Morphologically Similar To Part B Other Labs: Lab Results Component Value Date INR 1.1 12/27/2018 PT 13.8 12/27/2018 ASSESSMENT/PLAN: Trever Arizmendi is a 63 y.o. male with rectal ca treated with surgery in 2019 with pre-op radiation & post-op chemo coming to the interventional pulmonary clinic for bilateral nodules & lymph nodes. LN biopsy from 10L, 7, 11R were positive for metastatic adenocarcinoma PLAN Refer back to Dr. Shaheen Raymond, his oncologist. Mr. Arizmendi said that he will personally contact his oncologist to schedule an appointment RTC as needed I spent 45 minutes of total time on the date of this encounter. This time is inclusive of review of the medical record including prior documentation by other health care providers, reviewing tests, obtaining history, performing physical examination, ordering of medications or tests, documenting clinical information in the electronic health record, independently interpreting tests and images, coordinating care for the patient, and counseling the patient regarding their plan of care. Al Butler MD Public Relations Manager Division of pulmonary, critical care and sleep medicine Department of Internal Medicine documented in this encounter [facility] 06-03-2023 Nurse Note Unable to perform ION due to access to site 1104--- EBUS in 1107---TBNA 10L with 5 passes complete 1123--- TBNA 7 with 4 passes complete 1132---TBNA 11R with 4 passes complete 1137-- Large scope in for cleanup and final look EBUS balloon off and intact 1148-- [facility] Miscellaneous Notes Unable to perform ION due to access to site 1104--- EBUS in 1107---TBNA 10L with 5 passes complete 1123--- TBNA 7 with 4 passes complete 1132---TBNA 11R with 4 passes complete 1137-- Large scope in for cleanup and final look EBUS balloon off and intact 1148-- Patient extubated Anesthesia at bedside monitoring the airway [facility] Nurse Note Anesthesia at bedside monitoring the airway [facility] 06-03-2023 History and physical note Interventional Pulmonology Pre-operative H&P Pt known to IP team. No acute complaints Home meds reviewed. Exam BP 147/76 (BP Location: Left arm) Pulse 68 Resp 24 Ht 1.892 m (6' 2.49 ) Wt 123.7 kg (272 lb 9.6 oz) SpO2 99% BMI 34.54 kg/m Smoking Status Never No acute distress. Plan for navigation biopsy and EBUS procedure today. Pt seen by nj pre-procedure. Carmelo Del Rio MD PGY-7 Interventional Web Worker, Dept. Pulmonary & Critical Care [facility] Work Phone: 06-03-2023 History and physical note Interventional Pulmonology Pre-operative H&P Pt known to IP team. No acute complaints Home meds reviewed. Exam BP 147/76 (BP Location: Left arm) Pulse 68 Resp 24 Ht 1.892 m (6' 2.49 ) Wt 123.7 kg (272 lb 9.6 oz) SpO2 99% BMI 34.54 kg/m Smoking Status Never No acute distress. Plan for navigation biopsy and EBUS procedure today. Pt seen by me pre-procedure. Carmelo Del Rio MD PGY-7 Interventional Web Worker, Dept. Pulmonary & Critical Care documented in this encounter [facility] 05-18-2023 History of Present illness Narrative Images from the original note were not included. Interventional Pulmonology Initial Clinic Note Provider: Al Butelr MD, and Christiano Fregoso APRN-PURCHASING EXPEDITOR Referring Provider: Reason for Evaluation/Referral: Bilateral nodules & med lymph Chief complaint: Chief Complaint Patient presents with New Patient History of present illness: Mr. Trever Arizmendi is a 63 y.o. years old male never smoker with rectal ca treated with surgery in 2019 with pre-op radiation & post-op chemo coming to the interventional pulmonary clinic for bilateral nodules & lymph nodes. Has no dyspnea, cough, chest pain, weight loss, fatigue, night sweats, or fevers. No recent lung infections. He still has an ostomy bag. Pertinent meds: None. Interventional Pulmonary procedures: None Occupational exposures & smoking history: Pt has never smoked. Exposures: Car [employer] (old cars; a lot of paint too) Family history of lung cancer: None Past Medical History: Diagnosis Date Actinic keratoses 2012 Arthritis Dermatofibroma 2012 Epidermal cyst 2011 GERD (gastroesophageal reflux disease) Inguinal hernia 2011 Rectal bleeding 2018 Rectal cancer 2018 Skin cancer 2012 Skin erosion 2012 Solar lentigo 2012 Umbilical hernia 2011 Past Surgical History: Procedure Laterality Date PROCTECTOMY COMPLETE ABDOMINOPERINEAL APPROACH ROBOTIC N/A 12/27/2018 Laterality: N/A; Surgeon: Desiree Avila MD; Location: [facility] MAIN OR COLONOSCOPY DIAGNOSTIC 08/10/2018 EGD W/ BX 08/10/2018 Current Outpatient Medications Medication Sig acetaminophen 325 MG tablet Take 2 tablets by mouth every 6 hours as needed for Mild Pain. docusate 100 MG Cap capsule Take 1 capsule by mouth 2 times daily as needed for Constipation 1st Line. ibuprofen 400 MG Tab tablet Take 1 tablet by mouth every 8 hours. multivitamin w/ minerals Tab tablet Take 1 tablet by mouth daily. omeprazole [address] Take 1 capsule by mouth daily. enOXAParin 40 MG injection Inject 0.4 mL under the skin every 24 hours. oxyCODONE 5 MG Tab tablet Take 1 tablet by mouth every 6 hours as needed for Mild Pain or Moderate Pain for up to 7 days. No Known Allergies family history includes Colorectal Polyps in his mother; Diabetes in his mother; Heart Disease - Other in his brother, father, and mother; Other - Specify in his mother. Social History Socioeconomic History Marital status: Spouse name: Not on file Number of children: Not on file Years of education: Not on file Highest education level: Not on file Occupational History Not on file Tobacco Use Smoking status: Never Smokeless tobacco: Never Substance and Sexual Activity Alcohol use: Yes Comment: occasionally Drug use: No Sexual activity: Not on file Other Topics Concern Not on file Social History Narrative Not on file Social Determinants of Health Financial Resource Strain: Not on file Food Insecurity: Not on file Transportation Needs: Not on file Physical Activity: Not on file Stress: Not on file Social Connections: Not on file Intimate Partner Violence: Not on file Housing Stability: Not on file Review of Systems Pertinent ROS discussed in HPI OBJECTIVE Physical Exam BP 171/74 (BP Location: Left arm, BP Position: Sitting) Comment: rn notified Pulse 59 Temp 97.8 F (36.6 C) (Oral) Resp 16 Ht 1.892 m (6' 2.5 ) Wt 123.7 kg (272 lb 9.6 oz) SpO2 97% BMI 34.53 kg/m Smoking Status Never Body mass index is 34.53 kg/m . GPEx: Awake, alert, sitting in chair in no apparent distress HEENT: No pallor or icterus, oropharynx is clear Pulm: Equal chest expansion bilaterally. Clear to auscultation bilaterally CV: Regular rate and rhythm, no rubs/ gallops or murmurs, no lower extremity edema Skin: No rashes, clubbing or cyanosis Heme/ lymphatic: No ecchymoses, no cervical or supraclavicular lymphadenopathy Neurologic: Awake, alert, speech normal, no focal neurologic deficit noted Psychiatric: Oriented, pleasant GRADE ECOG PERFORMANCE STATUS 0 Fully active, able to carry on all pre-disease performance without restriction 1 Restricted in physically strenuous activity but ambulatory and able to carry out work of a light or sedentary nature, e.g., light house work, office work 2 Ambulatory and capable of all selfcare but unable to carry out any work activities; up and about more than 50% of waking hours 3 Capable of only limited selfcare; confined to bed or chair more than 50% of waking hours 4 Completely disabled; cannot carry on any selfcare; totally confined to bed or chair Diagnostic review: I personally reviewed the following tests: Chest CT: From 04/02/23 and showed suspicious nodules PET Scan: From 04/21/23 and showed nodules & lymph nodes are avid & no other avid spots Other Labs: CBC Lab Results Component Value Date WBC 6.13 12/30/2018 HGB 9.7 (L) 12/30/2018 HCT 29.9 (L) 12/30/2018 PLATELET 187 12/30/2018 MCV 93.1 12/30/2018 EDIF Lab Results Component Value Date RBCDISTRIBU 14.5 (H) 12/30/2018 GRNLOCYT 79.8 12/27/2018 EOSINOPHILS 2.3 12/27/2018 BASOPHILS 0.5 12/27/2018 LYMPHOCYTABS 0.37 (L) 12/27/2018 EOSINOPHLABS 0.13 12/27/2018 PLATELET 187 12/30/2018 MPV 10.2 12/30/2018 Lab Results Component Value Date SODIUM 141 12/30/2018 POTASSIUM 3.8 12/30/2018 CHLORIDE 108 12/30/2018 CO2 25 12/30/2018 BUN 10 12/30/2018 CREATSERUM 0.65 (L) 12/30/2018 GLUCOSE 110 (H) 12/30/2018 No results found for: ALT , TRANSFERASEA , AST , GGT , GAMMAGT , ALKPHOS , BILITOTAL , BILIDIRECT Lab Results Component Value Date INR 1.1 12/27/2018 PT 13.8 12/27/2018 Assessment and plan: Trever Arizmendi is a 63 y.o. male never smoker with rectal ca treated with surgery in 2019 with pre-op radiation & post-op chemo coming to the interventional pulmonary clinic for bilateral nodules & lymph nodes. Lung nodules: Findings could be malignancy however with his h/o rectal ca if it was metastatic there should be more areas on the PET but it could still be that or a new lung primary. Infectious/inflammatory disorder also possible (fungal serologies ordered). Bronch scheduled for 06/10; not on ac. I've discuss with the patient the benefits of bronchoscopy such as obtaining a diagnosis. We also discussed risks associated with bronchoscopy that include but not limited to hypoxia, cough, bleeding, infection, collapsed lung, injury to the teeth or airways, adverse reaction to anesthesia, hypoventilation, and rarely and the possibility of not getting a diagnosis. All questions were answered. Mediastinal lymphadenoapthy: We will biopsy these as well History of rectal cancer: Care per local onc Follow-up: After bronch Outside records reviewed: H & P, CT, PET I spent 39 minutes on this encounter As the attending physician, I personally examined the patient independently. I reviewed all medication, labs and imaging. I also have reviewed the past medical, family, and relevant social history.I have taken a history pertinent to the patient's case. I have formulated an independent assessment and plan and discussed with Christiano Fregoso NP. My findings are in agreement as outlined in the note by the team and I have the following annotation to add: 63 y.o. patient, former smoker with past medical history of rectal cancer, HTN who presents with multiple lung nodules on CT chest that was done for surveillance on his rectal cancer. EXAM General appearance: Alert, well appearing Eyes: PERRL, anicteric HENT: moist mucous membrance Respiratory: CTAB without r/r/w CV: RR Abdomen: soft, non-tender, non-distended Extremities: CGExamLE: No LE edema Neurological: Alert Diagnostic Results / Procedures: I have personally reviewed the following imaging, diagnostic, and laboratory studies in [facility]. Significant findings include: PET scan 04/21/23 with multiple b/l fdg avid nodules There is no immunization history on file for this patient. Assessment 1. Multiple lung nodules 2. Hx rectal cancer ddx infectious vs neoplastic Plan -Schedule for navigation robotic bronchoscopy, TBBx, FNA and EBUS/TBNA -Return to clinic with his referring physician/oncologist. The patient is agreeable to this plan I spent 63 minutes of total time on the date of this encounter. This time is inclusive of review of the medical record including prior documentation by other health care providers, reviewing tests, obtaining history, performing physical examination, ordering of medications or tests, documenting clinical information in the electronic health record, independently interpreting tests and images, coordinating care for the patient, and counseling the patient regarding their plan of care. Al Butler MD Public Relations Manager Division of pulmonary, critical care and sleep medicine Department of Internal Medicine documented in this encounter [facility] 05-18-2023 Instructions Christiano Fregoso APRN-PURCHASING EXPEDITOR - 05/18/2023 10:00 AM EDT You are scheduled for a bronchoscopy at 9:00 on Jun 10. Please check into the 2nd floor of [facility] at 8:00. The junior sales representative will direct you to the procedure area. Nothing by mouth after midnight (no eating, drinking, mints, gum, candy, smoking, etc) the night before the procedure except you can take your morning medications with small sips of water. If there are other diabetic medications or blood thinners that you take not listed here please ask about them. All other medications including blood pressure medications, inhalers, and aspirin should be taken. Your normal pain medications can also be taken. You must have a responsible driver/merchandiser drive you to and from the procedure and it's preferable if have someone to stay with you the night after the procedure. If you have home oxygen please bring that with you the day of the procedure. Please be aware that pulmonary procedures DO NOT show up on your [facility] appointment list and the procedure will show up as a bronchoscopy since it is in our bronchoscopy suite Pulmonary Clinic The following attachments cannot be sent through Care Everywhere.Bronchoscopy ([facility]) ([place])documented in this encounter [facility] documented [facility] Diagnosis Cavitary lung disease- Primary Other diseases of lung, not elsewhere classified Lung nodule Solitary pulmonary nodule Mediastinal lymphadenopathy Enlargement of lymph nodes History of rectal cancer Personal history of malignant neoplasm of rectum, rectosigmoid junction, and anus [facility] Diagnosis Cavitary lung disease Other diseases of lung, not elsewhere classified History of rectal cancer Personal history of malignant neoplasm of rectum, rectosigmoid junction, and anus Lung nodule Solitary pulmonary nodule [facility] Diagnosis Rectal cancer- Primary Malignant neoplasm of rectum documented in this encounter [facility] Advance Directives No Advanced Directives Records FoundLatest Code Status on File Code Status Date Activated Date Inactivated Comments Full Code 12/27/2018 5:34 PM Latest Code Status on File Code Status Date Activated Date Inactivated Comments Full Code 12/27/2018 5:34 PM Reason for Referral Specialty Diagnoses / Procedures Referred By Contac t Referred To Contact Diagnoses Cavitary lung disease History of rectal cancer Lung nodule Procedures NAVIGATIONAL BRONCHOSCOPY VA BRNCHSC INCL FLUOR GDNCE DX W/CELL WASHG SPX VA BRONCHOSCOPY W/CPTR-ASST IMAGE-GUIDED NAVIGATION Christiano Fregoso RIDDLER OPERATOR-PURCHASING EXPEDITOR [address] [place] [id number] Referral ID Status Reason Start Date Expiration Date V isits Requested Visits Authorized [id number] Pending Review 05/18/2023 06/11/2024 1 1 Specialty Diagnoses / Procedures Referred By Contac t Referred To Contact Diagnoses Lung nodule Procedures CT CHEST WITHOUT CONTRAST CHG DIAGNOSTIC COMPUTED TOMOGRAPHY THORAX W/O CNTRST Christiano Fregoso, RIDDLER OPERATOR-PURCHASING EXPEDITOR [address] [address] Referral ID Status Reason Start Date Expiration Date V isits Requested Visits Authorized [id number] Auth Not Needed 05/19/2023 06/11/2024 1 1 Summary Purpose Family History No Family History Records Found Additional Source Comments Reason for Visit (unrecogniz ed section and content) Reason Comments New Patient Specialty Diagnoses / Procedures Referred By Contac t Referred To Contact Pulmonary Disease Diagnoses Cavitary lung disease History of rectal cancer Shaheen Raymond MB/[facility] [address] [place] [address] [facility] [address] [place] [address] Referral ID Status Reason Start Date Expiration Date V isits Requested Visits Authorized [id number] Pending Review 04/28/2023 05/22/2024 1 1 Specialty Diagnoses / Procedures Referred By Contac t Referred To Contact Diagnoses Cavitary lung disease History of rectal cancer Lung nodule Procedures NAVIGATIONAL BRONCHOSCOPY VA BRNCHSC INCL FLUOR GDNCE DX W/CELL WASHG SPX VA BRONCHOSCOPY W/CPTR-ASST IMAGE-GUIDED NAVIGATION Christiano Fregoso, RIDDLER OPERATOR-PURCHASING EXPEDITOR [address] [address] Referral ID Status Reason Start Date Expiration Date Visits Re quested Visits Authorized [id number] Closed 05/18/2023 06/11/2024 1 1 Reason Comments Follow-up Care Teams (unrecognized sec tion and content) Head Of Mathematics Relationship Specialty Start Date End Date Shaheen Raymond MB/[facility] [address], [place] [id number] PCP - General Hematology 09/07/18 Ivet Kumar, VU Registered Nurse 04/28/23 Head Of Mathematics Relationship Specialty Start Date End Date Shaheen Raymond MB/[facility] [address] [place], [place] [id number] PCP - General Hematology 09/07/18 Ivet Kumar RN Registered Nurse 04/28/23 Head Of Mathematics Relationship Specialty Start Date End Date Shaheen Raymond MB/[facility] [address] [place], [place] [id number] PCP - General Hematology 09/07/18 Ivet Kumar, RN Registered Nurse 04/28/23 (unrecognized sect ion and content) No Status Records Found INFORMATION SOURCE (unrecogn ized section and content) FOR RECORDS PERTAINING TO PATIENTS WHO ARE OR HAVE BEEN ENROLLED IN A CHEMICAL DEPENDENCY/SUBSTANCEABUSE PROGRAM, SOME INFORMATION MAY BE OMITTED. This clinical summary was aggregated from multiple sources. Caution should be exercised in using it in the provision of clinical care. This summary normalizes information from multiple sources, and as a consequence, information in this document may materially change the coding, format and clinical context of patient data. In addition, data may be omitted in some cases. CLINICAL DECISIONS SHOULD BE BASED ON THE PRIMARY CLINICAL RECORDS. [facility] [employer] [facility]. provides no warranty or guarantee of the accuracy or completeness of information in this document.
== END | disposition home or self-care (01) ==
LOC: CT 07:14
PROVIDERS: PCP Internal Medicine; Referring Provider Internal Medicine Medical Oncology; Visit Provider Internal Medicine Medical Oncology
DX: C78.00 Secondary malignant neoplasm of unspecified lung (principal); C20 Malignant neoplasm of rectum
CPT/HCPCS: 71260; 74177; Q9967

== ENCOUNTER → 2024-04-28 | Outpatient (CLI) | payer OTHER, SELFPAY ==
[2018-08-26 10:55] VITALS: BMI 32.5
--- NOTE | 2024-04-28 06:55 | CT_ITS ---
STUDY: CT CHEST, ABDOMEN T PELVIS WITH CONTRAST REASON FOR EXAM: Male, 64 years old. MONITOR RECTALCA-LUNG METS IV ONLY RADIATION DOSAGE (If Supplied By Facility): CTDIvol = ( 22.64 ) mGy, DLP = ( 2350.53 ) mGycm TECHNIQUE: Transaxial imaging was performed following intravenous administration of IV 100mL Isovue-300. Multiplanar coronal and sagittal images were reformatted. Individualized dose optimization techniques were used for this CT. COMPARISON: Comparison is made with prior study dated January 07, 2024. FINDINGS: CHEST A right-sided portacatheter is seen with the tip in the superior vena cava. Stable bilateral axillary lymph nodes. The largest lymph node is in the left axilla and measures 1.2 cm. Stable 1.3 mm nodule in the anterior aspect of the left upper lobe as seen on axial image #57. Stable 7 mm nodule in the posterior aspect of the right lung apex. Essentially stable spiculated nodule in the lateral aspect of the right lower lobe as seen on axial image #71. Slight increase in size in the right infrahilar lymph node presently measuring 1.8 cm. Previously measured 1.6 cm. There is no demonstrated pleural abnormality. There are calcifications of the coronary arteries. Slightly enlarged lymph node in the left aortopulmonary window measuring 1.8 cm. This has increased in size as compared to prior study. Normal hilar regions. Normal unenhanced pulmonary arteries. Normal aorta arch and descending thoracic aorta. There are multi-level degenerative changes of the thoracic spine. Stable heterogeneous appearance of the mid dorsal vertebrae. ABDOMEN Normal liver. Normal gallbladder and extrahepatic biliary system. Normal spleen. Normal pancreas. Normal bilateral adrenal glands. Normal right kidney. Normal left kidney. Normal visualized stomach. Normal small intestine. The patient is status post distal colon resection. A colostomy is once again seen in the left upper quadrant. The appendix is visualized and appears normal. Normal abdominal aorta. Normal inferior vena cava. There is borderline retroperitoneal lymphadenopathy with enlarged nodes no greater than 10mm in the short axis diameter. There is evidence of an umbilical hernia containing fat. Stable prominence of soft tissues in the presacral space. Once again, there is evidence of a left inguinal hernia containing a portion of the bladder and fat. Normal osseous structures. PELVIS Normal urinary bladder. There is no pelvic fluid. There is no pelvic lymphadenopathy or mass lesion. CT/CT Chest, Abd, Pel w/Contrast IMPRESSION: Essentially stable examination except for slight increase in size of the right infrahilar lymph node as well as slight increase in size of the left aortopulmonary window lymph node. Electronically Signed: Hugo Gan MD at 13:14 EDT ,
[2024-04-28 07:22] LABS: CREATININE FINGERSTICK 1.3 mg/dL (0.70-1.30)
== END | disposition home or self-care (01) ==
LOC: CT 06:55
PROVIDERS: PCP Internal Medicine; Referring Provider Internal Medicine Medical Oncology; Visit Provider Internal Medicine Medical Oncology
DX: C20 Malignant neoplasm of rectum (principal); C78.00 Secondary malignant neoplasm of unspecified lung
CPT/HCPCS: 71260; 74177; Q9967

== ENCOUNTER → 2024-11-14 | Outpatient (CLI) | payer OTHER, SELFPAY ==
[2018-08-26 10:55] VITALS: BMI 32.5
[2024-11-14 12:25] LABS: Absolute Neutrophil Count 3.8 X10^3/uL (2.0-7.7); Basophil# 0.03 X10^3/uL; Basophil% 0.6 % (0-1); Eosinophil# 0.04 X10^3/uL; Eosinophils% 0.7 % (0-5); Hematocrit 42.6 % (40-54); Hemoglobin 13.6 g/dL (13.0-16.5); Lymphocyte % 18.6 % (19-41); Mean Corp Hgb Conc 31.9 g/dL (32-36); Mean Corpuscular Hgb 29.1 pg (27.0-32.0); Mean Corpuscular Volume 91.2 fL (80-94); Mean Platelet Vol. 9.7 fl (6.2-12.0); Monocyte# 0.55 X10^3/uL; Monocyte% 10.2 % (0-10); NRBC Flagged by Analyzer 0 % (0-5); Neutrophil # 3.76 X10^3/uL (2.7-7.7); Neutrophil % 69.7 % (47-70); Platelet Count 238 K/mm3 (150-450); RBC Distribution Width CV 14.1 % (11.6-14.6); RBC Distribution Width SD 47.3 fl (35.1-43.9); Red Blood Count 4.67 M/mm3 (4.6-6.2); White Blood Count 5.4 K/mm3 (4.4-11.0)
[2024-11-14 12:50] LABS: AST(SGOT) 25 U/L (15-37); Alanine Aminotransfer ALT/SGPT 31 U/L (16-61); Albumin, Serum 3.8 g/dL (3.2-5.0); Alkaline Phosphatase 91 U/L (45-117); Anion Gap 3 (5-15); BUN 17 mg/dL (7-18); BUN/Creat Ratio 18.4 RATIO (10-20); Calcium,Total 9.2 mg/dL (8.5-10.1); Chloride 108 mmol/L (98-107); Cholesterol 165 mg/dL (200); Creatinine, Serum 0.92 mg/dL (0.70-1.30); EST Glomerular Filtration Rate 88 mL/min (>60); Est Glom Filt Rate - Afr Amer 106 mL/min (>60); Glucose 139 mg/dL (74-106); High Density Lipoprotein 47 mg/dL; Potassium 4.2 mmol/L (3.5-5.1); Protein, Total 7.8 g/dL (6.4-8.2); Sodium Level 137 mmol/L (136-145); Triglycerides 77 mg/dL; Very Low Density Lipoprotein 15 mg/dL (5-40)
[2024-11-14 13:15] LABS: Hemoglobin A1c 6.1 % (3.8-5.6)
== END | disposition home or self-care (01) ==
LOC: BIMLAB 08:44
PROVIDERS: PCP Internal Medicine; Referring Provider Internal Medicine; Visit Provider Internal Medicine
DX: R73.03 Prediabetes (principal); I10 Essential (primary) hypertension
CPT/HCPCS: 36415; 80053; 80061; 83036; 85025

== ENCOUNTER → 2024-12-01 | Outpatient (CLI) | payer OTHER, SELFPAY ==
[2018-08-26 10:55] VITALS: BMI 32.5
--- NOTE | 2024-12-01 07:49 | CT_ITS ---
EXAM: CT CHEST, ABDOMEN AND PELVIS WITH INTRAVENOUS CONTRAST CLINICAL INDICATION: Rectal carcinoma. Lung metastases. Follow-up. TECHNIQUE: Helically acquired images were obtained of the chest, abdomen and pelvis with intravenous contrast. This CT exam was performed using one or more of the following dose reduction techniques: automated exposure control, adjustment of the mA and/or kV according to patient size, and/or use of iterative reconstruction technique. CONTRAST: IV 100mL Isovue-300 RADIATION DOSE: CTDIvol = 22.01 mGy, DLP = 2402.54 mGy-cm COMPARISON: CT chest, abdomen and pelvis with contrast 04/28/2024. FINDINGS: CHEST: LUNGS AND PLEURAL SPACES: Increasing size of metastatic pulmonary nodules. In the posterior apical segment of right upper lobe, the pulmonary nodule measures 1.1 cm, previously 0.94 cm. In the superior lingular segment of the left upper lobe, the pulmonary nodule measures 2.1 cm, previously 1.4 cm. In the central aspect of the right lower lobe, the metastatic pulmonary nodule with spiculated borders measures 2.4 cm, previously 1.9 cm. In the medial surface of the left lower lobe, the metastatic pulmonary nodule with spiculated borders measures 1.7 cm, previously 1.4 cm. The metastatic pulmonary nodule bordering in the right lower lobe behind the right hilum measures 2.3 cm, previously 1.6 cm. No pleural effusion or thickening. No pneumothorax. HEART: Unremarkable. Heart size is normal. No pericardial effusion. MEDIASTINUM: Unremarkable. No mediastinal or hilar adenopathy. Esophagus is unremarkable. No hiatal hernia. THYROID: Unremarkable. No thyroid lesions. ABDOMEN: LIVER: Unremarkable. Homogeneous. No focal mass. GALLBLADDER AND BILE DUCTS: Unremarkable. No calcified gallstones. No gallbladder distention or wall edema. No intra- or extrahepatic biliary ductal dilation. PANCREAS: Unremarkable. No focal cystic or solid mass. SPLEEN: Unremarkable. Normal size without focal cystic or solid mass. ADRENALS: Unremarkable. No nodules. KIDNEYS AND URETERS: 1.9 cm nonenhancing cyst in the medial aspect of the left renal parenchyma is unchanged. No stones or hydronephrosis in both kidneys. 1.8 cm nonenhancing intrasinus cyst in the left cuneus unchanged. This has CT number of 8.25 Hounsfield units. Normal renal size and position. STOMACH AND BOWEL: Left anterior colostomy is unchanged. No stomach or bowel distention. No focal inflammatory change. PELVIS: APPENDIX: No evidence of acute appendicitis. BLADDER: Unremarkable. REPRODUCTIVE: Unremarkable as visualized. No mass. CHEST, ABDOMEN and PELVIS: INTRAPERITONEAL SPACE: Unremarkable. No ascites or other fluid collection. No free air. BONES/JOINTS: Pronounced disc space narrowing with endplate sclerosis and degenerative fat containing phenomena at L1-L2, L2-L3 and L5-S1 disc space levels with prominent posterior marginal spurs. Mild degenerative retrolisthesis of L3 on L4. No acute fractures. No lytic or blastic lesions. SOFT TISSUES: Midline umbilical hernia containing only fat is unchanged. VASCULATURE: Unremarkable. Aorta is non-dilated. No aortic dissection. No obvious central pulmonary embolism although this study was not performed with the pulmonary embolism protocol. LYMPH NODES: Unremarkable. No enlarged lymph nodes. CT/CT Chest, Abd, Pel w/Contrast IMPRESSION: 1. Increasing size of metastatic pulmonary nodules in both lungs as described above. 2. No CT evidence of metastatic disease or mass in the abdomen and pelvis. 3. Nonenhancing cysts in both kidneys are simple cysts. They are unchanged. ACR White Paper guidelines (Herts, et al. JACR 2018; 15(2):264-273) suggest no follow-up is necessary. 4. No other additional findings or changes when compared to 04/28/2024. Electronically Signed: Aniket Valentine MD at 15:44 EST ,
[2024-12-01] MEDS: 0.9% Saline Lock 10 ML Syringe IV ×2 (08:00→08:01)
== END | disposition home or self-care (01) ==
LOC: CT 07:49
PROVIDERS: PCP Internal Medicine; Referring Provider Internal Medicine Medical Oncology; Visit Provider Internal Medicine Medical Oncology
DX: C78.01 Secondary malignant neoplasm of right lung (principal); C78.02 Secondary malignant neoplasm of left lung; C20 Malignant neoplasm of rectum
CPT/HCPCS: 71260; 74177; Q9967

== ENCOUNTER → 2025-07-18 | Outpatient (CLI) | payer OTHER, SELFPAY ==
[2018-08-26 10:55] VITALS: BMI 32.5
--- NOTE | 2025-07-18 08:10 | CT_ITS ---
PROCEDURE: CT CHEST, ABD, PEL W/CONTRAST 07/18/2025 REASON FOR EXAM: MET RECTAL CA. Status post partial colectomy, radiation and chemotherapy. TECHNIQUE: Chest, abdomen and pelvis CT with intravenous contrast. Coronal and Sagittal reconstruction series were provided. One or more dose reduction techniques were used (e.g., Automated exposure control, adjustment of the mA and/or kV according to patient size, use of iterative reconstruction technique. PATIENT PREPARATION: Per protocol ORAL CONTRAST TYPE: None. CONTRAST: Isovue 370 VOLUME: 100mL RADIATION DOSE SUMMARY: CTDlvol: 87.5 mGy DLP: 2427.11 mGycm COMPARISON: CT chest abdomen and pelvis with contrast, 12/01/2024 FINDINGS: CT CHEST: Lower neck:The thyroid gland is heterogeneous in density without discrete nodules. There is no supraclavicular lymphadenopathy. Mediastinum:There is multifocal lymphadenopathy of the mediastinum and both sandy increasing in size and number since the prior exam index node, a right inferior pulmonary lymph node, measuring 2.5 x 1.6 cm (was 2.1 x 1.2 cm). Heart and Vasculature:The heart size is normal. There is no pericardial effusion. There is mild calcific vascular disease of the coronary arteries. There is no significant calcific vascular disease of the thoracic aorta. Esophagus:Normal. Chest wall:There is a chemotherapy port in the right upper chest wall with the tip in the superior vena cava via the right internal jugular vein. There is no axillary lymphadenopathy. There are Schmorl's nodes at multiple vertebral endplates of the mid and lower thoracic spine. There are findings of DISH in the mid and lower thoracic spine. Lungs, airways and pleura: There are multiple nodules and masses in both lungs which have increased in size since the prior exam. The largest is in the lower lobe of the right lung, measuring 3.3 x 2.7 cm (was 2.7 x 2.2 cm), and compresses the right inferior pulmonary vein. There are no pleural effusions. CT ABDOMEN/PELVIS: Liver: Normal size. No mass. Gallbladder: Normal. Spleen: Normal size. There are 2 benign splenules in the splenic hilum. Pancreas: Normal size without evidence of mass surrounding inflammation or ductal dilation. Adrenals: Normal. Kidneys: Normal renal sizes. No hydronephrosis. There are stable cortical and peripelvic cysts in the left kidney. Bladder: Normal unenhanced appearance. Reproductive Organs: Suspect prostatectomy and vesiculectomy. There is no free fluid in the pelvis. There is no inguinal lymphadenopathy. Bowel: Status post APR with a left mid abdominal colostomy. Appendix: Normal. Lymph nodes: There are few stable reactive retroperitoneal lymph nodes. There is no mesenteric lymphadenopathy. Vasculature: Mild diffuse atherosclerotic calcifications are noted. Peritoneum / Retroperitoneum: There is an umbilical hernia, containing normal fat, measuring 4.8 cm in diameter. There is a left inguinal hernia containing fat and a portion of the urinary bladder, there is a right inguinal hernia, containing normal fat, measuring 2.5 cm in diameter. Measuring 4.5 cm in diameter. Bones: There is moderate to severe multilevel degenerative disc disease of the lumbar spine with large partially calcified disc protrusions at L1-2, L2-3, L3-4 and L5-S1. There is resultant central canal stenosis at L1-2 through L3-4. There is degenerative grade 1 retrolisthesis of L3 on L4. There is mild levoscoliosis of the lumbar spine. CT/CT Chest, Abd, Pel w/Contrast IMPRESSION: 1. Enlarging mediastinal and bilateral hilar metastatic lymphadenopathy. 2. Enlarging lung metastases. One of the metastases in the lower lobe of the r ight lung narrows the right inferior pulmonary vein. 3. Status post APR and left mid abdominal colostomy. 4. Umbilical and bilateral inguinal hernias as described. 5. Suspect prostatectomy and vesiculectomy. 6. Other findings as noted. Reading Location: [place] [id number]
[2025-07-18] MEDS: 0.9% Saline Lock 10 ML Syringe IV ×2 (08:20→08:25)
== END | disposition home or self-care (01) ==
LOC: CT 07:56
PROVIDERS: PCP Internal Medicine; Referring Provider Nurse Practitioner Family; Visit Provider Nurse Practitioner Family
DX: C20 Malignant neoplasm of rectum (principal); C78.02 Secondary malignant neoplasm of left lung; C78.01 Secondary malignant neoplasm of right lung
CPT/HCPCS: 71260; 74177; Q9967; A4216